=== PATIENT | female | born 1955 | race Caucasian/White ===

== ENCOUNTER 2017-07-21 15:14 | Inpatient (IN) | payer BC ==
[~2017-07-21] VITALS: Ht 157.5 cm; Wt 43.1 kg
[2017-07-21] MEDS ORDERED: ASPI-482 PO (16:02)
[2017-07-21] MEDS ORDERED: IV 1/2 NORMAL SALINE 1,000 ML IV SCH (16:27)
[2017-07-21] MEDS ORDERED: ACETAMINOPHEN 325 MG TABLET. PO PRN (16:30)
[2017-07-21] MEDS ORDERED: ONDANSETRON PF 4 MG/2 ML VIAL. IV PRN (16:30)
[2017-07-21] MEDS ORDERED: IOHEXOL 240 MG/ML 50ML VIAL. PO ONE (16:45)
[2017-07-21] MEDS ORDERED: CONTRAST GIVEN MC PRN (17:00)
[2017-07-21 17:04] LABS: BASO # 0.1 x10^3/uL (0.0-0.2); BASO % 1 % (0-3); EOS % 1 % (0-3); HEMOGLOBIN 12.8 g/dL (12.0-15.5); LYMPH # 2.9 x10^3/uL (1.0-4.8); LYMPH % 19 % (24-48); MEAN CORPUSCULAR HEMOGLOBIN 26 pg (25-35); MEAN CORPUSCULAR HGB CONC 33 g/dL (31-37); MEAN CORPUSCULAR VOLUME 81 fL (79-100); MONO % 7 % (0-9); NEUT % 73 % (31-73); PLATELET COUNT 537 x10^3/uL (140-400); RED BLOOD COUNT 4.85 x10^6/uL (3.50-5.40); RED CELL DISTRIBUTION WIDTH 14.4 % (11.5-14.5); WHITE BLOOD COUNT 15.5 x10^3/uL (4.0-11.0)
[2017-07-21 17:19] LABS: ALBUMIN 3.1 g/dL (3.4-5.0); ALBUMIN/GLOBULIN RATIO 0.7 (1.0-1.7); CALCIUM 9.9 mg/dL (8.5-10.1); CREATININE 0.6 mg/dL (0.6-1.0); POTASSIUM 3.1 mmol/L (3.5-5.1); TOTAL BILIRUBIN 0.5 mg/dL (0.2-1.0); TOTAL PROTEIN 7.6 g/dL (6.4-8.2)
--- NOTE | 2017-07-21 17:21 | PDOC2 ---
GI CONSULT Reason For Consult: Vomiting, weight loss HPI: HPI: 62 y/o female directly admitted by Dr. Goodwin. Has been ill x 1 year, worse x 7- 8 months. Tells me she "spits up" clear phlegm and food (not always, but sometimes 15 min after eating). Feels like food must "get caught somewhere" so keeps to mostly soft/bland foods. Denies dysphagia, retching, and vomiting. Denies abd pain. Denies diarrhea and constipation although bowel movements are irregular due to decreased PO intake. Has lost weight; she prefers not to tell me how much in front of two family members but RN reports ~80 pounds. No hematemesis, melena, hematochezia. H/o heartburn before, no longer bothersome. No previous EGD or colonoscopy. No h/o liver, gallbladder, or pancreas problems. Has had some occasional lower back discomfort, has been taking ASA. Labs: WBC 15.5, plt 547. CMP, US, amylase, lipase pending. CT A/P ordered. PMH: PMH: GERD FH: Family History: Cancer (mother had colon cancer) Social History: Smoke: <1 pack per day ALCOHOL: none Drugs: None ROS: GEN: Denies fevers, chills, sweats HEENT: Denies blurred vision, sore throat CV: Denies chest pain RESP: Denies shortness of air, cough GI: Per HPI : Denies hematuria, dysuria ENDO: +weight loss NEURO: Denies confusion, dizziness MSK: Denies weakness, joint pain/swelling SKIN: Denies jaundice, pruritus Vitals: Vitals: Please see EMR. Labs: Labs: Laboratory Tests Test 07/21/17 16:55 White Blood Count 15.5 x10^3/uL (4.0-11.0) Red Blood Count 4.85 x10^6/uL (3.50-5.40) Hemoglobin 12.8 g/dL (12.0-15.5) Hematocrit 39.0 % (36.0-47.0) Mean Corpuscular Volume 81 fL (79-100) Mean Corpuscular Hemoglobin 26 pg (25-35) Mean Corpuscular Hemoglobin Concent 33 g/dL (31-37) Red Cell Distribution Width 14.4 % (11.5-14.5) Platelet Count 537 x10^3/uL (140-400) Neutrophils (%) (Auto) 73 % (31-73) Lymphocytes (%) (Auto) 19 % (24-48) Monocytes (%) (Auto) 7 % (0-9) Eosinophils (%) (Auto) 1 % (0-3) Basophils (%) (Auto) 1 % (0-3) Neutrophils # (Auto) 11.2 x10^3uL (1.8-7.7) Lymphocytes # (Auto) 2.9 x10^3/uL (1.0-4.8) Monocytes # (Auto) 1.1 x10^3/uL (0.0-1.1) Eosinophils # (Auto) 0.2 x10^3/uL (0.0-0.7) Basophils # (Auto) 0.1 x10^3/uL (0.0-0.2) Allergies: Coded Allergies: Penicillins (Verified Allergy, Unknown, 07/21/17) Sulfa (Sulfonamide Antibiotics) (Verified Allergy, Unknown, 07/21/17) Medications: Please see EMR. PE: GEN: NAD, thin HEENT: Atraumatic, PERRL LUNGS: clear bilaterally anteriorly HEART: RRR ABD: NABS, S/ND/NT EXTREMITY: No edema SKIN: No rashes, no jaundice NEURO/PSYCH: A & O 3 A/P: A/P: Weight loss "Vomiting" -"spits up" phlegm and food H/o GERD -no longer bothersome so untreated, no previous EGD CRC screen, FH colon cancer -no previous colonoscopy -- Await additional labs and CT. Other per Dr. Pineda ---> ?[facility] SUGGS Jul 21, 2017 17:21
[2017-07-21 18:31] VITALS: BP 110/78
[2017-07-21] MEDS: ACETAMINOPHEN 650 MG/20.3 ML SOLUTION. PO PRN (18:53)
[2017-07-21 19:00] VITALS: BP 100/55
[2017-07-21] MEDS ORDERED: PNEUMOCOCCAL VAX SCREEN BY RX. MC ONE (19:15)
[2017-07-21] MEDS ORDERED: PNEUMOC CONJ VACC 23-VALENT 0.5 ML VIAL. VAX IM ONE (19:30)
--- NOTE | 2017-07-21 21:41 | PDOC ---
GENERAL General: see dictated H&P. Problems: VITAL SIGNS Vital Signs: Vital Signs Date Time Temp Pulse Resp B/P (MAP) Pulse Ox O2 Delivery O2 Flow Rate FiO2 07/21/17 19:24 Room Air 07/21/17 19:00 97.7 85 17 100/55 (70) 96 97.7 I & O I & O Intake and Output 07/22/17 07:00 Intake Total 450 ml Balance 450 ml Intake Oral 450 ml # Voids 1 ALLERGIES Allergies: Allergies Coded Allergies Type Severity Reaction Last Updated Verified Penicillins Allergy Unknown 07/21/17 Yes Sulfa (Sulfonamide Antibiotics) Allergy Unknown 07/21/17 Yes MEDS Medications: Current Medications Medications (Trade) Dose Ordered Sig/Riky Start Time Stop Time Status Last Admin Dose Admin Acetaminophen (Tylenol) 650 mg PRN Q6HRS PRN 07/21/17 18:45 07/21/17 18:53 650 MG Info (Do NOT chart on this entry -- for MONITORING) 1 each PRN DAILY PRN 07/21/17 17:00 07/23/17 16:59 Iohexol (Omnipaque 240 Mg/ml) 30 ml 1X ONCE 07/21/17 16:45 07/21/17 16:46 DC Ondansetron HCl (Zofran) 4 mg PRN Q6HRS PRN 07/21/17 16:30 Pneumococcal Polyvalent Vaccine (Do NOT chart on this placeholder) 1 each 1X ONCE 07/21/17 19:15 07/21/17 19:16 UNV Pneumococcal Polyvalent Vaccine (Pneumovax 23) 0.5 ml ONCE ONCE 07/21/17 19:30 07/21/17 19:31 DC 07/21/17 20:05 0.5 ML Sodium Chloride 1,000 ml @ 75 mls/hr [id number] 07/21/17 16:27 07/21/17 17:45 75 MLS/HR LAB Lab: Laboratory Tests Test 07/21/17 16:55 White Blood Count 15.5 x10^3/uL (4.0-11.0) Red Blood Count 4.85 x10^6/uL (3.50-5.40) Hemoglobin 12.8 g/dL (12.0-15.5) Hematocrit 39.0 % (36.0-47.0) Mean Corpuscular Volume 81 fL (79-100) Mean Corpuscular Hemoglobin 26 pg (25-35) Mean Corpuscular Hemoglobin Concent 33 g/dL (31-37) Red Cell Distribution Width 14.4 % (11.5-14.5) Platelet Count 537 x10^3/uL (140-400) Neutrophils (%) (Auto) 73 % (31-73) Lymphocytes (%) (Auto) 19 % (24-48) Monocytes (%) (Auto) 7 % (0-9) Eosinophils (%) (Auto) 1 % (0-3) Basophils (%) (Auto) 1 % (0-3) Neutrophils # (Auto) 11.2 x10^3uL (1.8-7.7) Lymphocytes # (Auto) 2.9 x10^3/uL (1.0-4.8) Monocytes # (Auto) 1.1 x10^3/uL (0.0-1.1) Eosinophils # (Auto) 0.2 x10^3/uL (0.0-0.7) Basophils # (Auto) 0.1 x10^3/uL (0.0-0.2) Sodium Level 135 mmol/L (136-145) Potassium Level 3.1 mmol/L (3.5-5.1) Chloride Level 96 mmol/L (98-107) Carbon Dioxide Level 29 mmol/L (21-32) Anion Gap 10 (6-14) Blood Urea Nitrogen 15 mg/dL (7-20) Creatinine 0.6 mg/dL (0.6-1.0) Estimated GFR (Cockcroft-Gault) 102.0 BUN/Creatinine Ratio 25 (6-20) Glucose Level 120 mg/dL (70-99) Calcium Level 9.9 mg/dL (8.5-10.1) Total Bilirubin 0.5 mg/dL (0.2-1.0) Aspartate Amino Transf (AST/SGOT) 11 U/L (15-37) Alanine Aminotransferase (ALT/SGPT) 12 U/L (14-59) Alkaline Phosphatase 121 U/L (46-116) Total Protein 7.6 g/dL (6.4-8.2) Albumin 3.1 g/dL (3.4-5.0) Albumin/Globulin Ratio 0.7 (1.0-1.7) Amylase Level 39 U/L (25-115) Lipase 147 U/L (73-393) ALIZA SEPULVEDA MD Jul 21, 2017 21:41
--- NOTE | 2017-07-21 22:10 | HP ---
ADMIT DATE: 07/21/2017 CHIEF COMPLAINT AND HISTORY OF PRESENT ILLNESS: This 62-year-old female was met by us in the office on the day of admission. She presented with the story of 80 pounds of weight loss over the last 6 months where she had been around 150 or so pounds was down to 80 or 74 in the office. Over that time, she had lots of GI complaints predominantly ____ for nausea and vomiting, inability to keep anything down. She appeared cachectic and ill and as was as dehydrated and was admitted for hydration as well as workup of the massive weight loss over the short period of time. PAST MEDICAL HISTORY: Unremarkable. MEDICATIONS: Meds were on the aspirin only. ALLERGIES: Include PENICILLIN AND SULFA. SOCIAL HISTORY: She is a smoker having quit on 07/10/2017, does not abuse alcohol or drugs. FAMILY HISTORY: Noncontributory. REVIEW OF SYSTEMS: As mentioned above. PHYSICAL EXAMINATION: GENERAL: She is a well-developed, well-nourished female who appears ill, dehydrated and cachectic. VITAL SIGNS: Stable. She is afebrile. HEAD, EYES, EARS, NOSE AND THROAT: Unremarkable. NECK: Supple without bruit, thyromegaly. CHEST: Clear to auscultation and percussion. HEART: Regular rate and rhythm without S3, S4 or murmur. ABDOMEN: Soft, nontender, without hepatosplenomegaly or mass. EXTREMITIES: Without cyanosis, clubbing or edema. NEUROLOGIC: She is intact. IMPRESSION: Nausea, vomiting, dehydration, and massive weight loss as described above. PLAN: The patient has been admitted. She will be hydrated. Potassium is low on admission, this will be replaced. GI has been consulted. CT scan of the abdomen and pelvis has been ordered and the patient will be monitored, managed and treated appropriately. ALIZA SEPULVEDA MD DR: PADMINI/cr JOB#: [id number] / [id number]
[2017-07-21 23:08] VITALS: BP 113/65
[2017-07-22 03:00] VITALS: BP 120/63
[2017-07-22] MEDS: POTASSIUM CHLORIDE 40 MEQ in IV 1/2 NORMAL SALINE 1,000 ML IV SCH ×2 (04:06→19:19)
[2017-07-22 06:22] LABS: CALCIUM 9.5 mg/dL (8.5-10.1); CREATININE 0.4 mg/dL (0.6-1.0); GFR 162.8; POTASSIUM 3.2 mmol/L (3.5-5.1)
--- NOTE | 2017-07-22 06:26 | ACF ---
Admission Forms Criteria HYPONATREMIA; HYPERNATREMIA; HYPOKALEMIA; HYPERKALEMIA; HYPOCALCEMIA; HYPERCALCEMIA Clinical Indications for Inpatient Care (Place 'X' for any and all applicable criteria): Ongoing inpatient care may be indicated for ANY ONE of the following [G](1)(2)(3 )(5): [X]I. Hyponatremia with ANY ONE of the following: [ ]a) Sodium less than 130 mEq/L (mmol/L) (new) (6)(22) [X]b) Sodium less than 135 mEq/L (mmol/L) with ANY ONE of the following: [X]i) Severe medical etiology requiring inpatient management (eg, heart failure, hypovolemia) [ ]ii) Altered mental status [ ]iii) Seizures [ ]II. Hypernatremia with ANY ONE of the following: [ ]a) Sodium greater than 155 mEq/L (mmol/L) [ ]b) Sodium greater than 150 mEq/L (mmol/L) with ANY ONE of the following: [ ] i) Altered mental status [ ]ii) Seizures [ ]iii) Severe medical etiology (eg, hypovolemia, diabetes insipidus) [ ]iv) Severe weakness [ ]v) Severe medical etiology (eg, hemolysis, infection, drug overdose) [ ]III. Hypokalemia with ANY ONE of the following: [ ]a) Potassium less than 2.5 mEq/L (mmol/L) despite outpatient and emergency treatment [ ]b) Potassium less than 3.0 mEq/L (mmol/L) with ANY ONE of the following: [ ]i) Weakness [ ]ii) Cardiac abnormality (eg, arrhythmia, conduction disturbance) [ ]iii) Cardiac ischemia [ ]iv) Ileus [ ]v) Ongoing medical cause requiring inpatient management. ( e.g., acute renal wasting, SIADH) [ ]vi) Other severe symptoms [ ] IV. Hyperkalemia with ANY ONE of the following: [ ]a) Potassium greater than 6.5 mEq/L (mmol/L) [ ]b) Potassium greater than 5 mEq/L (mmol/L) with ANY ONE of the following: [ ]i) Severe ECG findings [H] [ ]ii) Acute worsening of renal failure (creatinine greater than 2.5 mg/dL (221 micromoles/L) or significant elevation for age and size) [ ] V. Hypocalcemia with ANY ONE of the following: [ ]a) Calcium less than 7 mg/dL (1.75 mmol/L) despite outpatient and emergency treatment(19) [ ]b) Calcium less than 8 mg/dL (2 mmol/L) with significant symptoms or findings; examples include: [ ]i) Cardiac abnormality (eg, arrhythmia or conduction disturbance) [ ]ii) Altered mental status [ ]iii) Seizures [ ]iv) Breathing difficulty [ ]v) Muscle spasms [ ]. Hypercalcemia with ANY ONE of the following: [ ]a) Calcium greater than 14 mg/dL (3.5 mmol/L) [ ]b) Calcium greater than 12 mg/dL (3 mmol/L) with ANY ONE of the following: [ ]i) Significant dehydration or hypovolemia as indicated by ANY ONE of the following(2): [ ]1. Clinically significant dehydration as indicated by ANY ONE of the following: [ ]A. Acute loss of weight from baseline (5% of body weight in adults, 9% in pediatric patients) [ ]B. Hemodynamic instability [ ]C. Acute renal failure [ ]D. Serum sodium greater than 150 mEq/L (mmol/L) [ ]2) Dehydration that is persistent indicated by ALL of the following: [ ]A. Oral rehydration therapy not tolerated or insufficient to adequately correct dehydration [ ]B. Appropriate intravenous treatment (eg, fluids ) does not readily correct dehydration ie, after 12 to 24 hours of treatment) [ ]ii) Significant symptoms or findings; examples include: [ ]1) Altered mental status [ ]2) Cardiac abnormality (eg, arrhythmia, conduction disturbance) [ ]3) Cardiac abnormality (eg, arrhythmia, conduction disturbance) The original [email or web address] content created by [email or web address] has been revised. The portions of the content which have been revised are identified through the use of italic text or in bold, and [facility] has neither reviewed nor approved the modified material. All other unmodified content is copyright [facility] Please see references footnoted in the original [facility] 1006.tv edition 2016 Admission Criteria Met?: Yes DAVID BRYANT Jul 22, 2017 06:26
[2017-07-22 07:00] VITALS: BP 108/65
[2017-07-22] MEDS ORDERED: IOHEXOL 240 MG/ML 50ML VIAL. ONE (08:45)
[2017-07-22 10:48] LABS: BILIRUBIN,URINE MODERATE (NEG); GLUCOSE,URINE NEGATIVE (NEG); NITRITE,URINE NEGATIVE (NEG); PH,URINE 6.5; PROTEIN,URINE 30 mg/dL (NEG-TRACE)
[2017-07-22 11:04] LABS: BACTERIA,URINE FEW /HPF (0-FEW); RBC,URINE OCC /HPF (0-2); SQUAMOUS EPITHELIAL CELL,UR FEW /LPF
[2017-07-22 11:05] VITALS: BP 110/67
--- NOTE | 2017-07-22 11:15 | RAD ---
Indication vomiting. 80 pound weight loss in 6 months. Axial images through the abdomen and pelvis were obtained. Study is somewhat limited. Oral contrast was administered but IV contrast was not. No prior imaging of the abdomen or pelvis is available. The lung bases are clear. No hepatic or splenic abnormality is seen. The gallbladder appears grossly normal. There is suggested thickening involving the distal esophagus and fundus of the stomach. Inflammation or neoplastic disease is not excluded. Endoscopy should be considered. No adrenal or significant renal anomaly is seen. There are minute left renal calculi. No definite pancreatic abnormality is seen. In the pelvis no focal mass or inflammatory process is seen. IMPRESSION: There is suggested thickening involving the visualized distal esophagus and fundus of the stomach. Inflammation or neoplastic disease are not excluded. Endoscopy should be considered. Minute left renal calculi
--- NOTE | 2017-07-22 11:38 | PDOC ---
G I PROGRESS NOTE Subjective Now admits to dysphagia. Physical Exam Cachectic. Lungs clear. RRR Abdomen soft, not tender nor distended. Review of Relevant I have reviewed the following items josué (where applicable) has been applied. Labs Laboratory Tests Test 07/21/17 16:55 07/22/17 05:20 07/22/17 08:52 White Blood Count 15.5 x10^3/uL (4.0-11.0) Red Blood Count 4.85 x10^6/uL (3.50-5.40) Hemoglobin 12.8 g/dL (12.0-15.5) Hematocrit 39.0 % (36.0-47.0) Mean Corpuscular Volume 81 fL (79-100) Mean Corpuscular Hemoglobin 26 pg (25-35) Mean Corpuscular Hemoglobin Concent 33 g/dL (31-37) Red Cell Distribution Width 14.4 % (11.5-14.5) Platelet Count 537 x10^3/uL (140-400) Neutrophils (%) (Auto) 73 % (31-73) Lymphocytes (%) (Auto) 19 % (24-48) Monocytes (%) (Auto) 7 % (0-9) Eosinophils (%) (Auto) 1 % (0-3) Basophils (%) (Auto) 1 % (0-3) Neutrophils # (Auto) 11.2 x10^3uL (1.8-7.7) Lymphocytes # (Auto) 2.9 x10^3/uL (1.0-4.8) Monocytes # (Auto) 1.1 x10^3/uL (0.0-1.1) Eosinophils # (Auto) 0.2 x10^3/uL (0.0-0.7) Basophils # (Auto) 0.1 x10^3/uL (0.0-0.2) Sodium Level 135 mmol/L (136-145) 134 mmol/L (136-145) Potassium Level 3.1 mmol/L (3.5-5.1) 3.2 mmol/L (3.5-5.1) Chloride Level 96 mmol/L (98-107) 97 mmol/L (98-107) Carbon Dioxide Level 29 mmol/L (21-32) 28 mmol/L (21-32) Anion Gap 10 (6-14) 9 (6-14) Blood Urea Nitrogen 15 mg/dL (7-20) 12 mg/dL (7-20) Creatinine 0.6 mg/dL (0.6-1.0) 0.4 mg/dL (0.6-1.0) Estimated GFR (Cockcroft-Gault) 102.0 162.8 BUN/Creatinine Ratio 25 (6-20) Glucose Level 120 mg/dL (70-99) 94 mg/dL (70-99) Calcium Level 9.9 mg/dL (8.5-10.1) 9.5 mg/dL (8.5-10.1) Total Bilirubin 0.5 mg/dL (0.2-1.0) Aspartate Amino Transf (AST/SGOT) 11 U/L (15-37) Alanine Aminotransferase (ALT/SGPT) 12 U/L (14-59) Alkaline Phosphatase 121 U/L (46-116) Total Protein 7.6 g/dL (6.4-8.2) Albumin 3.1 g/dL (3.4-5.0) Albumin/Globulin Ratio 0.7 (1.0-1.7) Amylase Level 39 U/L (25-115) Lipase 147 U/L (73-393) Thyroid Stimulating Hormone (TSH) < 0.007 uIU/mL (0.358-3.74) Urine Collection Type Unknown Urine Color Ade Urine Clarity Clear Urine pH 6.5 Urine Specific [place] >=1.030 Urine Protein 30 mg/dL (NEG-TRACE) Urine Glucose (UA) Negative mg/dL (NEG) Urine Ketones (Stick) 15 mg/dL (NEG) Urine Blood Negative (NEG) Urine Nitrite Negative (NEG) Urine Bilirubin Moderate (NEG) Urine Urobilinogen Dipstick 1.0 mg/dL (0.2 mg/dL) Urine Leukocyte Esterase Small (NEG) Urine RBC Occ /HPF (0-2) Urine WBC 5-10 /HPF (0-4) Urine Squamous Epithelial Cells Few /LPF Urine Bacteria Few /HPF (0-FEW) Urine Mucus Mod /LPF Laboratory Tests Test 07/21/17 16:55 07/22/17 05:20 07/22/17 08:52 White Blood Count 15.5 x10^3/uL (4.0-11.0) Red Blood Count 4.85 x10^6/uL (3.50-5.40) Hemoglobin 12.8 g/dL (12.0-15.5) Hematocrit 39.0 % (36.0-47.0) Mean Corpuscular Volume 81 fL (79-100) Mean Corpuscular Hemoglobin 26 pg (25-35) Mean Corpuscular Hemoglobin Concent 33 g/dL (31-37) Red Cell Distribution Width 14.4 % (11.5-14.5) Platelet Count 537 x10^3/uL (140-400) Neutrophils (%) (Auto) 73 % (31-73) Lymphocytes (%) (Auto) 19 % (24-48) Monocytes (%) (Auto) 7 % (0-9) Eosinophils (%) (Auto) 1 % (0-3) Basophils (%) (Auto) 1 % (0-3) Neutrophils # (Auto) 11.2 x10^3uL (1.8-7.7) Lymphocytes # (Auto) 2.9 x10^3/uL (1.0-4.8) Monocytes # (Auto) 1.1 x10^3/uL (0.0-1.1) Eosinophils # (Auto) 0.2 x10^3/uL (0.0-0.7) Basophils # (Auto) 0.1 x10^3/uL (0.0-0.2) Sodium Level 135 mmol/L (136-145) 134 mmol/L (136-145) Potassium Level 3.1 mmol/L (3.5-5.1) 3.2 mmol/L (3.5-5.1) Chloride Level 96 mmol/L (98-107) 97 mmol/L (98-107) Carbon Dioxide Level 29 mmol/L (21-32) 28 mmol/L (21-32) Anion Gap 10 (6-14) 9 (6-14) Blood Urea Nitrogen 15 mg/dL (7-20) 12 mg/dL (7-20) Creatinine 0.6 mg/dL (0.6-1.0) 0.4 mg/dL (0.6-1.0) Estimated GFR (Cockcroft-Gault) 102.0 162.8 BUN/Creatinine Ratio 25 (6-20) Glucose Level 120 mg/dL (70-99) 94 mg/dL (70-99) Calcium Level 9.9 mg/dL (8.5-10.1) 9.5 mg/dL (8.5-10.1) Total Bilirubin 0.5 mg/dL (0.2-1.0) Aspartate Amino Transf (AST/SGOT) 11 U/L (15-37) Alanine Aminotransferase (ALT/SGPT) 12 U/L (14-59) Alkaline Phosphatase 121 U/L (46-116) Total Protein 7.6 g/dL (6.4-8.2) Albumin 3.1 g/dL (3.4-5.0) Albumin/Globulin Ratio 0.7 (1.0-1.7) Amylase Level 39 U/L (25-115) Lipase 147 U/L (73-393) Thyroid Stimulating Hormone (TSH) < 0.007 uIU/mL (0.358-3.74) Urine Collection Type Unknown Urine Color Ade Urine Clarity Clear Urine pH 6.5 Urine Specific [place] >=1.030 Urine Protein 30 mg/dL (NEG-TRACE) Urine Glucose (UA) Negative mg/dL (NEG) Urine Ketones (Stick) 15 mg/dL (NEG) Urine Blood Negative (NEG) Urine Nitrite Negative (NEG) Urine Bilirubin Moderate (NEG) Urine Urobilinogen Dipstick 1.0 mg/dL (0.2 mg/dL) Urine Leukocyte Esterase Small (NEG) Urine RBC Occ /HPF (0-2) Urine WBC 5-10 /HPF (0-4) Urine Squamous Epithelial Cells Few /LPF Urine Bacteria Few /HPF (0-FEW) Urine Mucus Mod /LPF Medications Current Medications Sodium Chloride 1,000 ml @ 75 mls/hr [id number] IV Last administered on t 17:45; Start 07/21/17 at 16:27; Stop 07/21/17 at 21:54; Status DC Ondansetron HCl (Zofran) 4 mg PRN Q6HRS PRN IV NAUSEA/VOMITING; Start 07/21/17 at 16:30 Acetaminophen (Tylenol) 650 mg PRN Q6HRS PRN PO PAIN; Start 07/21/17 at 16:30; Stop 07/21/17 at 18:41; Status DC Iohexol (Omnipaque 240 Mg/ml) 30 ml 1X ONCE PO Last administered on 07/22/17 10:28; Start 07/21/17 at 16:45; Stop 07/21/17 at 16:46; Status DC Info (Do NOT chart on this entry -- for MONITORING) 1 each PRN DAILY PRN MC SEE COMMENTS; Start 07/21/17 at 17:00; Stop 07/23/17 at 16:59 Acetaminophen (Tylenol) 650 mg PRN Q6HRS PRN PO MILD PAIN / TEMP Last administered on 07/21/17 18:53; Start 07/21/17 at 18:45 Pneumococcal Polyvalent Vaccine (Do NOT chart on this placeholder) 1 each 1X ONCE MC ; Start 07/21/17 at 19:15; Stop 07/21/17 at 19:16; Status UNV Pneumococcal Polyvalent Vaccine (Pneumovax 23) 0.5 ml ONCE ONCE VAX IM Last administered on 07/21/17 20:05; Start 07/21/17 at 19:30; Stop 07/21/17 at 19:31 ; Status DC Potassium Chloride 40 meq/ Sodium Chloride 1,020 ml @ 75 mls/hr [id number] IV Last administered on 07/22/17 04:06; Start 07/21/17 at 23:00 Iohexol (Omnipaque 240 Mg/ml) 50 ml STK-MED ONCE .ROUTE ; Start 07/22/17 at 08: 45; Stop 07/22/17 at 08:46; Status DC Active Scripts Active Reported Aspir 81 (Aspirin) 81 Mg Tablet.dr 81 Mg PO DAILY Vitals/I & O Vital Sign - Last 24 Hours 07/21/17 07/21/17 07/21/17 07/21/17 17:00 18:31 19:00 19:24 Temp 97.7 97.7 97.7 97.7 Pulse 102 85 Resp 17 B/P (MAP) 110/78 (89) 100/55 (70) Pulse Ox 97 96 O2 Delivery Room Air Room Air Room Air 07/21/17 07/22/17 07/22/17 07/22/17 23:08 03:00 07:00 11:05 Temp 97.5 97.5 97.5 97.7 97.5 97.5 97.5 97.7 Pulse 75 68 77 80 Resp 19 18 18 18 B/P (MAP) 113/65 (81) 120/63 (82) 108/65 (79) 110/67 (81) Pulse Ox 97 98 99 100 O2 Delivery Room Air Room Air Room Air Room Air Images CT done, report pending. As I view the study, seems distal esophagus/proximal stomach mass. Assessment Malignancy highly suspect. Plan of Care Note Await CT report. If agrees with my interpretation, EGD tomorrow. VICTORINO OVERTON MD Jul 22, 2017 11:38
--- NOTE | 2017-07-22 12:09 | PDOC ---
PROGRESS NOTES Subjective Subjective Pt awake and pleasant this am. States she continues to gag on her saliva and has to spit it up. Pt states she is somewhat hungry, however is NPO awaiting results of CT and further testing. Pt denies diarrhea or pain. Objective Objective Pt awake and alert. NAD. VSS. Afebrile. Lungs CTA bilat. Resp even and unlabored. Pt on RA, not requiring supplemental O2. Heart with RRR. No murmurs. Abdomen soft, nondistended, and nontender. Vital Signs Date Time Temp Pulse Resp B/P (MAP) Pulse Ox O2 Delivery O2 Flow Rate FiO2 07/22/17 11:05 97.7 80 18 110/67 (81) 100 Room Air 97.7 Plan Plan of Care 1) Dysphagia with 80 pound weight loss in last 6 months -GI consulting -CT this am: "There is suggested thickening involving the visualized distalesophagus and fundus of the stomach. Inflammation or neoplastic disease arenot excluded. Endoscopy should be considered." -EGD scheduled for tomorrow am. 2) Dehydration with Hypokalemia and Hyponatremia -K 3.1 on 07/21, 40mEq of K added to IVS of NS. K 3.2 this am. -Na 134 this am -Repeat BMP in am. Comment Review of Relevant I have reviewed the following items josué (where applicable) has been applied. Labs Laboratory Tests Test 07/21/17 16:55 07/22/17 05:20 07/22/17 08:52 White Blood Count 15.5 x10^3/uL (4.0-11.0) Red Blood Count 4.85 x10^6/uL (3.50-5.40) Hemoglobin 12.8 g/dL (12.0-15.5) Hematocrit 39.0 % (36.0-47.0) Mean Corpuscular Volume 81 fL (79-100) Mean Corpuscular Hemoglobin 26 pg (25-35) Mean Corpuscular Hemoglobin Concent 33 g/dL (31-37) Red Cell Distribution Width 14.4 % (11.5-14.5) Platelet Count 537 x10^3/uL (140-400) Neutrophils (%) (Auto) 73 % (31-73) Lymphocytes (%) (Auto) 19 % (24-48) Monocytes (%) (Auto) 7 % (0-9) Eosinophils (%) (Auto) 1 % (0-3) Basophils (%) (Auto) 1 % (0-3) Neutrophils # (Auto) 11.2 x10^3uL (1.8-7.7) Lymphocytes # (Auto) 2.9 x10^3/uL (1.0-4.8) Monocytes # (Auto) 1.1 x10^3/uL (0.0-1.1) Eosinophils # (Auto) 0.2 x10^3/uL (0.0-0.7) Basophils # (Auto) 0.1 x10^3/uL (0.0-0.2) Sodium Level 135 mmol/L (136-145) 134 mmol/L (136-145) Potassium Level 3.1 mmol/L (3.5-5.1) 3.2 mmol/L (3.5-5.1) Chloride Level 96 mmol/L (98-107) 97 mmol/L (98-107) Carbon Dioxide Level 29 mmol/L (21-32) 28 mmol/L (21-32) Anion Gap 10 (6-14) 9 (6-14) Blood Urea Nitrogen 15 mg/dL (7-20) 12 mg/dL (7-20) Creatinine 0.6 mg/dL (0.6-1.0) 0.4 mg/dL (0.6-1.0) Estimated GFR (Cockcroft-Gault) 102.0 162.8 BUN/Creatinine Ratio 25 (6-20) Glucose Level 120 mg/dL (70-99) 94 mg/dL (70-99) Calcium Level 9.9 mg/dL (8.5-10.1) 9.5 mg/dL (8.5-10.1) Total Bilirubin 0.5 mg/dL (0.2-1.0) Aspartate Amino Transf (AST/SGOT) 11 U/L (15-37) Alanine Aminotransferase (ALT/SGPT) 12 U/L (14-59) Alkaline Phosphatase 121 U/L (46-116) Total Protein 7.6 g/dL (6.4-8.2) Albumin 3.1 g/dL (3.4-5.0) Albumin/Globulin Ratio 0.7 (1.0-1.7) Amylase Level 39 U/L (25-115) Lipase 147 U/L (73-393) Thyroid Stimulating Hormone (TSH) < 0.007 uIU/mL (0.358-3.74) Urine Collection Type Unknown Urine Color Ade Urine Clarity Clear Urine pH 6.5 Urine Specific [place] >=1.030 Urine Protein 30 mg/dL (NEG-TRACE) Urine Glucose (UA) Negative mg/dL (NEG) Urine Ketones (Stick) 15 mg/dL (NEG) Urine Blood Negative (NEG) Urine Nitrite Negative (NEG) Urine Bilirubin Moderate (NEG) Urine Urobilinogen Dipstick 1.0 mg/dL (0.2 mg/dL) Urine Leukocyte Esterase Small (NEG) Urine RBC Occ /HPF (0-2) Urine WBC 5-10 /HPF (0-4) Urine Squamous Epithelial Cells Few /LPF Urine Bacteria Few /HPF (0-FEW) Urine Mucus Mod /LPF Laboratory Tests Test 07/21/17 16:55 07/22/17 05:20 07/22/17 08:52 White Blood Count 15.5 x10^3/uL (4.0-11.0) Red Blood Count 4.85 x10^6/uL (3.50-5.40) Hemoglobin 12.8 g/dL (12.0-15.5) Hematocrit 39.0 % (36.0-47.0) Mean Corpuscular Volume 81 fL (79-100) Mean Corpuscular Hemoglobin 26 pg (25-35) Mean Corpuscular Hemoglobin Concent 33 g/dL (31-37) Red Cell Distribution Width 14.4 % (11.5-14.5) Platelet Count 537 x10^3/uL (140-400) Neutrophils (%) (Auto) 73 % (31-73) Lymphocytes (%) (Auto) 19 % (24-48) Monocytes (%) (Auto) 7 % (0-9) Eosinophils (%) (Auto) 1 % (0-3) Basophils (%) (Auto) 1 % (0-3) Neutrophils # (Auto) 11.2 x10^3uL (1.8-7.7) Lymphocytes # (Auto) 2.9 x10^3/uL (1.0-4.8) Monocytes # (Auto) 1.1 x10^3/uL (0.0-1.1) Eosinophils # (Auto) 0.2 x10^3/uL (0.0-0.7) Basophils # (Auto) 0.1 x10^3/uL (0.0-0.2) Sodium Level 135 mmol/L (136-145) 134 mmol/L (136-145) Potassium Level 3.1 mmol/L (3.5-5.1) 3.2 mmol/L (3.5-5.1) Chloride Level 96 mmol/L (98-107) 97 mmol/L (98-107) Carbon Dioxide Level 29 mmol/L (21-32) 28 mmol/L (21-32) Anion Gap 10 (6-14) 9 (6-14) Blood Urea Nitrogen 15 mg/dL (7-20) 12 mg/dL (7-20) Creatinine 0.6 mg/dL (0.6-1.0) 0.4 mg/dL (0.6-1.0) Estimated GFR (Cockcroft-Gault) 102.0 162.8 BUN/Creatinine Ratio 25 (6-20) Glucose Level 120 mg/dL (70-99) 94 mg/dL (70-99) Calcium Level 9.9 mg/dL (8.5-10.1) 9.5 mg/dL (8.5-10.1) Total Bilirubin 0.5 mg/dL (0.2-1.0) Aspartate Amino Transf (AST/SGOT) 11 U/L (15-37) Alanine Aminotransferase (ALT/SGPT) 12 U/L (14-59) Alkaline Phosphatase 121 U/L (46-116) Total Protein 7.6 g/dL (6.4-8.2) Albumin 3.1 g/dL (3.4-5.0) Albumin/Globulin Ratio 0.7 (1.0-1.7) Amylase Level 39 U/L (25-115) Lipase 147 U/L (73-393) Thyroid Stimulating Hormone (TSH) < 0.007 uIU/mL (0.358-3.74) Urine Collection Type Unknown Urine Color Ade Urine Clarity Clear Urine pH 6.5 Urine Specific [place] >=1.030 Urine Protein 30 mg/dL (NEG-TRACE) Urine Glucose (UA) Negative mg/dL (NEG) Urine Ketones (Stick) 15 mg/dL (NEG) Urine Blood Negative (NEG) Urine Nitrite Negative (NEG) Urine Bilirubin Moderate (NEG) Urine Urobilinogen Dipstick 1.0 mg/dL (0.2 mg/dL) Urine Leukocyte Esterase Small (NEG) Urine RBC Occ /HPF (0-2) Urine WBC 5-10 /HPF (0-4) Urine Squamous Epithelial Cells Few /LPF Urine Bacteria Few /HPF (0-FEW) Urine Mucus Mod /LPF Medications Current Medications Sodium Chloride 1,000 ml @ 75 mls/hr [id number] IV Last administered on 17:45; Start 07/21/17 at 16:27; Stop 07/21/17 at 21:54; Status DC Ondansetron HCl (Zofran) 4 mg PRN Q6HRS PRN IV NAUSEA/VOMITING; Start 07/21/17 at 16:30 Acetaminophen (Tylenol) 650 mg PRN Q6HRS PRN PO PAIN; Start 07/21/17 at 16:30; Stop 07/21/17 at 18:41; Status DC Iohexol (Omnipaque 240 Mg/ml) 30 ml 1X ONCE PO Last administered on 07/22/17 10:28; Start 07/21/17 at 16:45; Stop 07/21/17 at 16:46; Status DC Info (Do NOT chart on this entry -- for MONITORING) 1 each PRN DAILY PRN MC SEE COMMENTS; Start 07/21/17 at 17:00; Stop 07/23/17 at 16:59 Acetaminophen (Tylenol) 650 mg PRN Q6HRS PRN PO MILD PAIN / TEMP Last administered on 07/21/17 18:53; Start 07/21/17 at 18:45 Pneumococcal Polyvalent Vaccine (Do NOT chart on this placeholder) 1 each 1X ONCE MC ; Start 07/21/17 at 19:15; Stop 07/21/17 at 19:16; Status UNV Pneumococcal Polyvalent Vaccine (Pneumovax 23) 0.5 ml ONCE ONCE VAX IM Last administered on 07/21/17 20:05; Start 07/21/17 at 19:30; Stop 07/21/17 at 19:31 ; Status DC Potassium Chloride 40 meq/ Sodium Chloride 1,020 ml @ 75 mls/hr [id number] IV Last administered on 07/22/17t 04:06; Start 07/21/17 at 23:00 Iohexol (Omnipaque 240 Mg/ml) 50 ml STK-MED ONCE .ROUTE ; Start 07/22/17 at 08: 45; Stop 07/22/17 at 08:46; Status DC Active Scripts Active Reported Aspir 81 (Aspirin) 81 Mg Tablet.dr 81 Mg PO DAILY Vitals/I & O Vital Sign - Last 24 Hours 07/21/17 07/21/17 07/21/17 07/21/17 17:00 18:31 19:00 19:24 Temp 97.7 97.7 97.7 97.7 Pulse 102 85 Resp 17 17 B/P (MAP) 110/78 (89) 100/55 (70) Pulse Ox 97 96 O2 Delivery Room Air Room Air Room Air 07/21/17 07/22/17 07/22/17 07/22/17 23:08 03:00 07:00 11:05 Temp 97.5 97.5 97.5 97.7 97.5 97.5 97.5 97.7 Pulse 75 68 77 80 Resp 19 18 18 18 B/P (MAP) 113/65 (81) 120/63 (82) 108/65 (79) 110/67 (81) Pulse Ox 97 98 99 100 O2 Delivery Room Air Room Air Room Air Room Air ALIZA SEPULVEDA MD Jul 22, 2017 12:09
[2017-07-22 12:26] LABS: HEMATOCRIT 35.9 % (36.0-47.0); HEMOGLOBIN 11.5 g/dL (12.0-15.5); RED BLOOD COUNT 4.37 x10^6/uL (3.50-5.40); RED CELL DISTRIBUTION WIDTH 14.3 % (11.5-14.5); WHITE BLOOD COUNT 15.2 x10^3/uL (4.0-11.0)
[2017-07-22 15:00] VITALS: BP 97/63
[2017-07-22 19:00] VITALS: BP 101/56
[2017-07-22 23:00] VITALS: BP 102/58
[2017-07-23] VITALS (11 sets, daily range): BP systolic 85–122; BP diastolic 54–74
[2017-07-23] MEDS ORDERED: HYDROmorphone 2 MG/ML VIAL IV PRN (07:00)
[2017-07-23] MEDS ORDERED: PROCHLORPERAZINE 10 MG/2 ML VIAL. IV PRN (07:00)
[2017-07-23] MEDS ORDERED: MORPHINE SULFATE 2 MG/ML DISP.SYRIN. IV PRN (07:00)
[2017-07-23] MEDS ORDERED: fentaNYL PF VIAL 100 MCG/2 ML VIAL IV PRN ×4 (07:00→11:30)
[2017-07-23] MEDS ORDERED: IV RINGERS,LACTATED 1000ML 1,000 ML IV SCH (07:00)
[2017-07-23] MEDS ORDERED: ONDANSETRON PF 4 MG/2 ML VIAL. IV PRN (07:00)
[2017-07-23] MEDS ORDERED: LIDOCAINE 1% 1 ML SYRINGE. ID PRN ×2 (07:00→11:30)
[2017-07-23] MEDS: POTASSIUM CHLORIDE 40 MEQ in IV 1/2 NORMAL SALINE 1,000 ML IV SCH ×2 (09:21→15:48)
[2017-07-23 10:11] LABS: CALCIUM 8.9 mg/dL (8.5-10.1); CREATININE 0.3 mg/dL (0.6-1.0); GFR 226.9; POTASSIUM 4.1 mmol/L (3.5-5.1)
--- NOTE | 2017-07-23 11:23 | PDOC ---
PROGRESS NOTES Subjective Subjective Pt awake and pleasant in conversation. Continues to deny painful symptoms. States she did have two cups of chicken broth last evening and tolerated them well. Pt states she had two loose, but formed, BMs this am. Pt states she has a good appetite and is excited to be able to eat. Pt states she feels better than she has in a very long time. Objective Objective Pt awake and alert. NAD. VSS. Afebrile. Lungs CTA bilat. Resp even and unlabored. Pt on RA, not requiring supplemental O2. Heart with RRR. No murmurs. No pedal edema. Abdomen soft, nondistended, and nontender to palpation. No palpable masses. Vital Signs Date Time Temp Pulse Resp B/P (MAP) Pulse Ox O2 Delivery O2 Flow Rate FiO2 07/23/17 08:00 Room Air 07/23/17 07:00 97.5 72 17 114/69 (84) 98 97.5 Plan Plan of Care 1) Dysphagia with 80 pound weight loss in last 6 months -GI consulting -CT this am: "There is suggested thickening involving the visualized distal esophagus and fundus of the stomach. Inflammation or neoplastic disease are not excluded. Endoscopy should be considered." -EGD scheduled for this am. 2) Dehydration with Hypokalemia and Hyponatremia -K 3.1 on 07/21, 40mEq of K added to IVS of NS. -Na 134 this am, K 4.1 Awaiting results of EGD to help guide continued POC. Comment Review of Relevant I have reviewed the following items josué (where applicable) has been applied. Labs Laboratory Tests Test 07/21/17 16:55 07/22/17 05:20 07/22/17 08:52 07/23/17 08:40 White Blood Count 15.5 x10^3/uL (4.0-11.0) 15.2 x10^3/uL (4.0-11.0) Red Blood Count 4.85 x10^6/uL (3.50-5.40) 4.37 x10^6/uL (3.50-5.40) Hemoglobin 12.8 g/dL (12.0-15.5) 11.5 g/dL (12.0-15.5) Hematocrit 39.0 % (36.0-47.0) 35.9 % (36.0-47.0) Mean Corpuscular Volume 81 fL (79-100) 82 fL (79-100) Mean Corpuscular Hemoglobin 26 pg (25-35) 26 pg (25-35) Mean Corpuscular Hemoglobin Concent 33 g/dL (31-37) 32 g/dL (31-37) Red Cell Distribution Width 14.4 % (11.5-14.5) 14.3 % (11.5-14.5) Platelet Count 537 x10^3/uL (140-400) 444 x10^3/uL (140-400) Neutrophils (%) (Auto) 73 % (31-73) Lymphocytes (%) (Auto) 19 % (24-48) Monocytes (%) (Auto) 7 % (0-9) Eosinophils (%) (Auto) 1 % (0-3) Basophils (%) (Auto) 1 % (0-3) Neutrophils # (Auto) 11.2 x10^3uL (1.8-7.7) Lymphocytes # (Auto) 2.9 x10^3/uL (1.0-4.8) Monocytes # (Auto) 1.1 x10^3/uL (0.0-1.1) Eosinophils # (Auto) 0.2 x10^3/uL (0.0-0.7) Basophils # (Auto) 0.1 x10^3/uL (0.0-0.2) Sodium Level 135 mmol/L (136-145) 134 mmol/L (136-145) 134 mmol/L (136-145) Potassium Level 3.1 mmol/L (3.5-5.1) 3.2 mmol/L (3.5-5.1) 4.1 mmol/L (3.5-5.1) Chloride Level 96 mmol/L (98-107) 97 mmol/L (98-107) 102 mmol/L (98-107) Carbon Dioxide Level 29 mmol/L (21-32) 28 mmol/L (21-32) 27 mmol/L (21-32) Anion Gap 10 (6-14) 9 (6-14) 5 (6-14) Blood Urea Nitrogen 15 mg/dL (7-20) 12 mg/dL (7-20) 7 mg/dL (7-20) Creatinine 0.6 mg/dL (0.6-1.0) 0.4 mg/dL (0.6-1.0) 0.3 mg/dL (0.6-1.0) Estimated GFR (Cockcroft-Gault) 102.0 162.8 226.9 BUN/Creatinine Ratio 25 (6-20) Glucose Level 120 mg/dL (70-99) 94 mg/dL (70-99) 76 mg/dL (70-99) Calcium Level 9.9 mg/dL (8.5-10.1) 9.5 mg/dL (8.5-10.1) 8.9 mg/dL (8.5-10.1) Total Bilirubin 0.5 mg/dL (0.2-1.0) Aspartate Amino Transf (AST/SGOT) 11 U/L (15-37) Alanine Aminotransferase (ALT/SGPT) 12 U/L (14-59) Alkaline Phosphatase 121 U/L (46-116) Total Protein 7.6 g/dL (6.4-8.2) Albumin 3.1 g/dL (3.4-5.0) Albumin/Globulin Ratio 0.7 (1.0-1.7) Amylase Level 39 U/L (25-115) Lipase 147 U/L (73-393) Thyroid Stimulating Hormone (TSH) < 0.007 uIU/mL (0.358-3.74) Urine Collection Type Unknown Urine Color Ade Urine Clarity Clear Urine pH 6.5 Urine Specific [place] >=1.030 Urine Protein 30 mg/dL (NEG-TRACE) Urine Glucose (UA) Negative mg/dL (NEG) Urine Ketones (Stick) 15 mg/dL (NEG) Urine Blood Negative (NEG) Urine Nitrite Negative (NEG) Urine Bilirubin Moderate (NEG) Urine Urobilinogen Dipstick 1.0 mg/dL (0.2 mg/dL) Urine Leukocyte Esterase Small (NEG) Urine RBC Occ /HPF (0-2) Urine WBC 5-10 /HPF (0-4) Urine Squamous Epithelial Cells Few /LPF Urine Bacteria Few /HPF (0-FEW) Urine Mucus Mod /LPF Laboratory Tests Test 07/23/17 08:40 Sodium Level 134 mmol/L (136-145) Potassium Level 4.1 mmol/L (3.5-5.1) Chloride Level 102 mmol/L (98-107) Carbon Dioxide Level 27 mmol/L (21-32) Anion Gap 5 (6-14) Blood Urea Nitrogen 7 mg/dL (7-20) Creatinine 0.3 mg/dL (0.6-1.0) Estimated GFR (Cockcroft-Gault) 226.9 Glucose Level 76 mg/dL (70-99) Calcium Level 8.9 mg/dL (8.5-10.1) Medications Current Medications Sodium Chloride 1,000 ml @ 75 mls/hr [id number] IV Last administered on 17:45; Start 07/21/17 at 16:27; Stop 07/21/17 at 21:54; Status DC Ondansetron HCl (Zofran) 4 mg PRN Q6HRS PRN IV NAUSEA/VOMITING; Start 07/21/17 at 16:30 Acetaminophen (Tylenol) 650 mg PRN Q6HRS PRN PO PAIN; Start 07/21/17 at 16:30; Stop 07/21/17 at 18:41; Status DC Iohexol (Omnipaque 240 Mg/ml) 30 ml 1X ONCE PO Last administered on 07/22/17 10:28; Start 07/21/17 at 16:45; Stop 07/21/17 at 16:46; Status DC Info (Do NOT chart on this entry -- for MONITORING) 1 each PRN DAILY PRN MC SEE COMMENTS; Start 07/21/17 at 17:00; Stop 07/23/17 at 16:59 Acetaminophen (Tylenol) 650 mg PRN Q6HRS PRN PO MILD PAIN / TEMP Last administered on 07/21/17 18:53; Start 07/21/17 at 18:45 Pneumococcal Polyvalent Vaccine (Do NOT chart on this placeholder) 1 each 1X ONCE MC ; Start 07/21/17 at 19:15; Stop 07/21/17 at 19:16; Status UNV Pneumococcal Polyvalent Vaccine (Pneumovax 23) 0.5 ml ONCE ONCE VAX IM Last administered on 07/21/17 20:05; Start 07/21/17 at 19:30; Stop 07/21/17 at 19:31 ; Status DC Potassium Chloride 40 meq/ Sodium Chloride 1,020 ml @ 75 mls/hr [id number] IV Last administered on 07/23/17t 09:21; Start 07/21/17 at 23:00 Iohexol (Omnipaque 240 Mg/ml) 50 ml STK-MED ONCE .ROUTE ; Start 07/22/17 at 08: 45; Stop 07/22/17 at 08:46; Status DC Ondansetron HCl (Zofran) 4 mg PRN Q6HRS PRN IV NAUSEA/VOMITING; Start 07/23/17 at 07:00; Stop 07/23/17 at 18:00 Fentanyl Citrate (Fentanyl 2ml Vial) 25 mcg PRN Q5MIN PRN IV MILD PAIN; Start 07/23/17 at 07:00; Stop 07/23/17 at 18:00 Fentanyl Citrate (Fentanyl 2ml Vial) 50 mcg PRN Q5MIN PRN IV MODERATE PAIN; Start 07/23/17 at 07:00; Stop 07/23/17 at 18:00 Morphine Sulfate 1 mg PRN Q10MIN PRN IV SEVERE PAIN; Start 07/23/17 at 07:00; Stop 07/23/17 at 18:00 Ringer's Solution 1,000 ml @ 30 mls/hr Q24H IV ; Start 07/23/17 at 07:00; Stop 07/23/17 at 18:59 Lidocaine HCl 2 ml PRN 1X PRN ID PRIOR TO IV START; Start 07/23/17 at 07:00; Stop 07/23/17 at 18:00 Hydromorphone HCl (Dilaudid) 0.5 mg PRN Q10MIN PRN IV SEV PAIN, Second choice; Start 07/23/17 at 07:00; Stop 07/23/17 at 18:00 Prochlorperazine Edisylate (Compazine) 5 mg PACU PRN PRN IV NAUSEA, MRX1; Start 07/23/17 at 07:00; Stop 07/23/17 at 18:00 Active Scripts Active Reported Aspir 81 (Aspirin) 81 Mg Tablet.dr 81 Mg PO DAILY Vitals/I & O Vital Sign - Last 24 Hours 07/22/17 07/22/17 07/22/17 07/22/17 15:00 19:00 20:00 23:00 Temp 97.7 97.9 97.7 97.7 97.9 97.7 Pulse 75 72 68 Resp 16 18 18 B/P (MAP) 97/63 (74) 101/56 (71) 102/58 (73) Pulse Ox 98 95 98 O2 Delivery Room Air Room Air Room Air Room Air 07/23/17 07/23/17 07:00 08:00 Temp 97.5 97.5 Pulse 72 Resp 17 B/P (MAP) 114/69 (84) Pulse Ox 98 O2 Delivery Room Air Room Air Nutrition Consultation Dietary Evaluation: Recommendations by RD: Increase Calorie Intake, Protein supplementation Comments: diet adv per gi w/ Ensure supplements ppn if unable to initate a po diet within next 24-48 hr Expected Outcomes/Goals: to meet > 75% est nutr needs Interpretation of weight loss: >20% in 1 year Malnutrition Findings: Food and Nutrition Intake (Sev: <50% est energy req 5days Body Fat Depletion (Non Severe: Mod to Severe Weight Status: Underweight ALIZA SEPULVEDA MD Jul 23, 2017 11:23
[2017-07-23] MEDS: IV RINGERS,LACTATED 1000ML 1,000 ML IV SCH ×2 (11:24→19:24)
[2017-07-23] MEDS ORDERED: MIDAZOLAM HCL/PF 2 MG/2 ML VIAL. IV PRN (11:30)
[2017-07-23] MEDS ORDERED: PROPOFOL 20 ML IV ONE (11:44)
[2017-07-23] MEDS ORDERED: LIDOCAINE 2% PF Vial for OR 5 ML VIAL. ONE (11:44)
--- NOTE | 2017-07-23 12:00 | PDOC4 ---
PROCEDURE Procedure EGD/biopsies Indication: dysphagia, weight loss, abnormal imaging. Meds: per anesthesia. Findings: E--obvious tumor starting at 19cm, extending into cardia. GEJ at 39cm. Biopsies taken. G--tumor in cardia, extending up toward fundus. Biopsies of cardiac portion. D--Normal to second portion. 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 Process seems to extend into cardia /fundus. REC: Await biopsies. Heme/onc consult. Consider surgical opinion, though not likely curable surgically. Thanks. VICTORINO OVERTON MD Jul 23, 2017 12:00
--- NOTE | 2017-07-23 15:30 | PDOC ---
Provider Note Provider Note Med Onc consult: Esophageal malignancy - await Bx, Plan EUS, and CT chest and Rad Onc consult see dictation [id number] FIFI CUEVAS MD Jul 23, 2017 15:30
--- NOTE | 2017-07-23 23:52 | CONS ---
DATE OF CONSULTATION: 07/23/2017 MEDICAL ONCOLOGY CONSULTATION REPORT CONSULTATION REQUESTING BY: Jason Goodwin M.D. REASON FOR CONSULTATION: Distal esophageal mass. HISTORY OF PRESENT ILLNESS: The patient is a 62-year-old female who reports being ill for almost a year. She denies dysphagia, but she mentions that her food gets caught somewhere and then she tends to spit up phlegm and sometimes about 15 minutes after eating. She denies abdominal pain. No nausea. No diarrhea or constipation. She reports weight loss, but she does not prefer to say how much. No hematemesis, melena or hematochezia. She underwent further evaluation with a CT scan of the abdomen and pelvis on 07/22/2017, which reveals thickening involving the distal esophagus and fundus of the stomach. There is also evidence of left renal calculi. Review of the other records indicates that the patient has lost over 80 pounds of weight over 6 months, according to Dr. Goodwin's note. She was evaluated by Gastroenterology and she underwent an EGD by Dr. Gonzalo Pineda on 07/23/2017, which revealed tumor starting at 19 cm, extending into the cardia. Biopsies were obtained. Esophageal malignancy was suspected and hence, I was consulted for further evaluation. She denies hematemesis, melena or hematochezia. No hemoptysis or hematuria. PAST MEDICAL HISTORY: Gastroesophageal reflux disease. FAMILY HISTORY: Mother had colon cancer. SOCIAL HISTORY: She has history of smoking less than 1 pack per year and she started smoking during her late teen years. She quit smoking in 06/2017. No alcohol abuse. REVIEW OF SYSTEMS: A 14-point review of systems were performed. Pertinent positives are mentioned in the history of present illness. Rest of the system review is negative. PHYSICAL EXAMINATION: GENERAL APPEARANCE: The patient is a 62-year-old female who is in no acute cardiorespiratory distress. VITAL SIGNS: Blood pressure 106/70, temperature 97 degrees. HEAD: Atraumatic and normocephalic. EYES: No icterus. NECK: Supple. CHEST: Bilaterally symmetrical. No crepitations or rhonchi heard. HEART: S1, S2 normal. ABDOMEN: Soft, nontender. CENTRAL NERVOUS SYSTEM: No focal deficits. LYMPHATICS: No lymphadenopathy. SKIN: No rashes. PSYCHOLOGIC: Mood and affect are appropriate. MUSCULOSKELETAL: No joint effusions. LABORATORY DATA: WBC 15.2, hemoglobin 11.5, platelet count 444,000 and MCV 82 on 07/22/2017. Sodium 134, potassium 4.1 and creatinine 0.3. Total bilirubin 0.5, AST 11, ALT 12, alkaline phosphatase of 121. Albumin 3.1. Total protein 7.6. IMPRESSION AND PLAN: 1. Esophageal cancer suspected at that time of upper endoscopy on 07/23/2017, involving the distal esophagus and extending into the cardiac. CT scan of the abdomen and pelvis does not reveal any evidence of distant metastatic disease. I will also obtain a CT scan of the chest for staging workup. She would also need staging evaluation with an endoscopic ultrasound and then, she would likely need chemotherapy and radiation therapy, followed by surgery if there are no contraindications. I will await the pathology results from the endoscopy and biopsy. I discussed in detail with the patient and she understands and agrees with the plan. 2. Anemia, mild, with hemoglobin of 11.5 on 07/22/2017. I will check iron studies, B12, folic acid levels and reticulocyte count. 3. Thrombocytosis. Platelet count was 537,000 on 07/21/2017. This is a reactive thrombocytosis due to malignancy. I will also evaluate for iron deficiency. 4. Dysphagia. Appreciate GI evaluation. FIFI CUEVAS MD DR: MIYA/cr JOB#: [id number] / [id number] ROYER
[2017-07-24 03:00] VITALS: BP 124/78
[2017-07-24] MEDS: ACETAMINOPHEN 650 MG/20.3 ML SOLUTION. PO PRN (04:48)
[2017-07-24 05:52] LABS: % SAT IRON 25 % (15-34); IRON,SERUM 30 ug/dL (50-170)
[2017-07-24 07:00] VITALS: BP 123/73
[2017-07-24 08:53] LABS: FOLATE 3.56 ng/ml (3.2-20.0)
--- NOTE | 2017-07-24 08:54 | PDOC ---
PROGRESS NOTES Subjective Subjective c/c - f/u of Esophageal cancer ROS - no dysphagia Objective Objective Vital Signs Date Time Temp Pulse Resp B/P (MAP) Pulse Ox O2 Delivery O2 Flow Rate FiO2 07/24/17 03:00 97.7 79 18 124/78 (93) 99 Room Air 97.7 07/23/17 20:00 2.0 Physical Exam Heart: Normal S1, Normal S2 General: Alert, Oriented X3 Lungs: Clear to auscultation Neuro: Normal speech Psych/Mental Status: Mental status NL Assessment Assessment IMPRESSION AND PLAN: 1. Esophageal cancer suspected at upper endoscopy on 07/23/2017, involving the distal esophagus and extending into the cardiac. CT scan of the abdomen and pelvis does not reveal any evidence of distant metastatic disease. I will also obtain a CT scan of the chest for staging workup. She would also need staging evaluation with an endoscopic ultrasound and then, she would need chemotherapy and radiation therapy, followed by surgery if there are no contraindications. I will await the pathology results from the endoscopy and biopsy. I discussed in detail with the patient and she understands and agrees with the plan. Consult Rad onc. I d/w RN 2. Anemia, mild, with hemoglobin of 11.5 on 07/22/2017. Iron studies do not reveal a deficiency. B12, folic acid levels are pending. 3. Thrombocytosis. Platelet count was 537,000 on 07/21/2017. This is a reactive thrombocytosis due to malignancy. 4. Dysphagia. Appreciate GI evaluation. Comment Review of Relevant I have reviewed the following items josué (where applicable) has been applied. Labs Laboratory Tests Test 07/23/17 08:40 07/24/17 04:38 Sodium Level 134 mmol/L (136-145) Potassium Level 4.1 mmol/L (3.5-5.1) Chloride Level 102 mmol/L (98-107) Carbon Dioxide Level 27 mmol/L (21-32) Anion Gap 5 (6-14) Blood Urea Nitrogen 7 mg/dL (7-20) Creatinine 0.3 mg/dL (0.6-1.0) Estimated GFR (Cockcroft-Gault) 226.9 Glucose Level 76 mg/dL (70-99) Calcium Level 8.9 mg/dL (8.5-10.1) Reticulocyte Count (auto) 0.6 % (0.5-2.5) Iron Level 30 ug/dL (50-170) Total Iron Binding Capacity 121 ug/dL (250-450) Iron Saturation 25 % (15-34) Ferritin 168 ng/mL (8-252) Laboratory Tests Test 07/24/17 04:38 Reticulocyte Count (auto) 0.6 % (0.5-2.5) Iron Level 30 ug/dL (50-170) Total Iron Binding Capacity 121 ug/dL (250-450) Iron Saturation 25 % (15-34) Ferritin 168 ng/mL (8-252) Microbiology 07/22/17 Urine Culture - Final, Complete 07/22/17 Urine Culture Result 1 (RAEANN) - Final, Complete Medications Current Medications Sodium Chloride 1,000 ml @ 75 mls/hr [id number] IV Last administered on 17:45; Start 07/21/17 at 16:27; Stop 07/21/17 at 21:54; Status DC Ondansetron HCl (Zofran) 4 mg PRN Q6HRS PRN IV NAUSEA/VOMITING; Start 07/21/17 at 16:30 Acetaminophen (Tylenol) 650 mg PRN Q6HRS PRN PO PAIN; Start 07/21/17 at 16:30; Stop 07/21/17 at 18:41; Status DC Iohexol (Omnipaque 240 Mg/ml) 30 ml 1X ONCE PO Last administered on 07/22/17 10:28; Start 07/21/17 at 16:45; Stop 07/21/17 at 16:46; Status DC Info (Do NOT chart on this entry -- for MONITORING) 1 each PRN DAILY PRN MC SEE COMMENTS; Start 07/21/17 at 17:00; Stop 07/23/17 at 16:59; Status DC Acetaminophen (Tylenol) 650 mg PRN Q6HRS PRN PO MILD PAIN / TEMP Last administered on 07/24/17 04:48; Start 07/21/17 at 18:45 Pneumococcal Polyvalent Vaccine (Do NOT chart on this placeholder) 1 each 1X ONCE MC ; Start 07/21/17 at 19:15; Stop 07/21/17 at 19:16; Status UNV Pneumococcal Polyvalent Vaccine (Pneumovax 23) 0.5 ml ONCE ONCE VAX IM Last administered on 9/12/17at 20:05; Start 07/21/17 at 19:30; Stop 07/21/17 at 19:31 ; Status DC Potassium Chloride 40 meq/ Sodium Chloride 1,020 ml @ 75 mls/hr [id number] IV Last administered on 07/23/17 15:48; Start 07/21/17 at 23:00 Iohexol (Omnipaque 240 Mg/ml) 50 ml STK-MED ONCE .ROUTE ; Start 07/22/17 at 08: 45; Stop 07/22/17 at 08:46; Status DC Ondansetron HCl (Zofran) 4 mg PRN Q6HRS PRN IV NAUSEA/VOMITING; Start 07/23/17 at 07:00; Stop 07/23/17 at 18:00; Status DC Fentanyl Citrate (Fentanyl 2ml Vial) 25 mcg PRN Q5MIN PRN IV MILD PAIN; Start 07/23/17 at 07:00; Stop 07/23/17 at 18:00; Status DC Fentanyl Citrate (Fentanyl 2ml Vial) 50 mcg PRN Q5MIN PRN IV MODERATE PAIN; Start 07/23/17 at 07:00; Stop 07/23/17 at 18:00; Status DC Morphine Sulfate 1 mg PRN Q10MIN PRN IV SEVERE PAIN; Start 07/23/17 at 07:00; Stop 07/23/17 at 18:00; Status DC Ringer's Solution 1,000 ml @ 30 mls/hr Q24H IV Last administered on 07/23/17 11:26; Start 07/23/17 at 07:00; Stop 07/23/17 at 18:59; Status DC Lidocaine HCl 2 ml PRN 1X PRN ID PRIOR TO IV START; Start 07/23/17 at 07:00; Stop 07/23/17 at 18:00; Status DC Hydromorphone HCl (Dilaudid) 0.5 mg PRN Q10MIN PRN IV SEV PAIN, Second choice; Start 07/23/17 at 07:00; Stop 07/23/17 at 18:00; Status DC Prochlorperazine Edisylate (Compazine) 5 mg PACU PRN PRN IV NAUSEA, MRX1; Start 07/23/17 at 07:00; Stop 07/23/17 at 18:00; Status DC Midazolam HCl (Versed) 2 mg PRN 1X PRN IV PRIOR TO PROCEDURE; Start 07/23/17 at 11:30; Stop 07/24/17 at 11:29 Fentanyl Citrate (Fentanyl 2ml Vial) 25 mcg PRN Q5MIN PRN IV X 2 DOSES FOR PAIN ; Start 07/23/17 at 11:30; Stop 07/24/17 at 11:29 Fentanyl Citrate (Fentanyl 2ml Vial) 50 mcg PRN Q5MIN PRN IV X 2 DOSES FOR PAIN ; Start 07/23/17 at 11:30; Stop 07/24/17 at 11:29 Ringer's Solution 1,000 ml @ 125 mls/hr Q8H IV ; Start 07/23/17 at 11:24; Stop 07/23/17 at 23:23; Status DC Lidocaine HCl 2 ml 1X PRN PRN ID IV START; Start 07/23/17 at 11:30; Stop at 11:29 Propofol 20 ml @ As Directed STK-MED ONCE IV ; Start 07/23/17 at 11:44; Stop at 11:45; Status DC Lidocaine HCl (Lidocaine Pf 2% Vial) 5 ml STK-MED ONCE .ROUTE ; Start 07/23/17 at 11:44; Stop 07/23/17 at 11:45; Status DC Active Scripts Active Reported Aspir 81 (Aspirin) 81 Mg Tablet.dr 81 Mg PO DAILY Vitals/I & O Vital Sign - Last 24 Hours 07/23/17 07/23/17 07/23/17 07/23/17 11:00 11:20 11:23 11:39 Temp 97.1 99.3 97.1 99.3 Pulse 70 69 74 Resp 17 20 B/P (MAP) 110/65 (80) 120/66 (84) Pulse Ox 99 99 97 O2 Delivery Room Air Room Air Room Air 07/23/17 07/23/17 07/23/17 07/23/17 11:45 12:00 12:00 12:15 Temp 97 97.0 Pulse 71 98 74 84 Resp 16 18 B/P (MAP) 107/71 (83) 145/64 122/74 (90) 106/70 Pulse Ox 98 98 97 99 O2 Delivery Room Air Room Air Room Air Room Air Nasal Cannula O2 Flow Rate 2 07/23/17 07/23/17 07/23/1714/17 12:30 13:00 15:00 16:00 Temp 97.7 97.7 Pulse 81 73 65 80 Resp 17 17 B/P (MAP) 85/67 (73) 122/67 (85) 98/54 (69) 121/72 (88) Pulse Ox 99 99 100 98 O2 Delivery Room Air Room Air Room Air Room Air 07/23/17 07/23/17 07/23/17 07/24/17 19:00 20:00 23:00 03:00 Temp 97.7 97.9 97.7 97.7 97.9 97.7 Pulse 80 70 79 Resp 18 18 18 B/P (MAP) 106/69 (81) 109/65 (80) 124/78 (93) Pulse Ox 97 99 99 O2 Delivery Room Air Room Air Room Air Room Air O2 Flow Rate 2.0 Nutrition Consultation Dietary Evaluation: Recommendations by RD: Increase Calorie Intake, Protein supplementation Comments: diet adv per gi w/ Ensure supplements ppn if unable to initate a po diet within next 24-48 hr Expected Outcomes/Goals: to meet > 75% est nutr needs Interpretation of weight loss: >20% in 1 year Malnutrition Findings: Food and Nutrition Intake (Sev: <50% est energy req 5days Body Fat Depletion (Non Severe: Mod to Severe Weight Status: Underweight FIFI CUEVAS MD Jul 24, 2017 08:54
[2017-07-24] MEDS ORDERED: IOHEXOL 300 MG/ML 75 ML VIAL IV ONE (09:00)
[2017-07-24] MEDS ORDERED: CONTRAST GIVEN MC PRN (09:15)
[2017-07-24 11:00] VITALS: BP 101/66
--- NOTE | 2017-07-24 11:15 | RAD ---
Indication esophageal malignancy. Contrast imaging through the chest was performed. Approximately 75 cc of Omnipaque 300 was administered. Note is made of the CT examination of the abdomen and pelvis 07/22/2017 and the accompanying report. Soft tissue fullness, compatible with the provided diagnosis of esophageal malignancy, is noted involving the distal esophagus and fundus of the stomach. No new finding in the upper abdomen is seen relative to the recent examination of the abdomen and pelvis. There are several nodules seen in both lobes of the thyroid. These are likely incidental but the thyroid could be further evaluated with nonemergent ultrasound. The thoracic aorta appears unremarkable. There is some coronary artery calcification. No significant hilar or mediastinal adenopathy is seen. There is a tiny calcified nodule in the right upper lobe. A dominant soft tissue mass is not seen in the chest. There is no definite evidence of metastatic disease. IMPRESSION: Soft tissue mass associated with the distal esophagus and fundus of the stomach compatible with the provided diagnosis of esophageal malignancy. No acute finding in the chest. No evidence of metastatic disease. Thyroid nodules. These are likely incidental but additional evaluation of the thyroid could be performed with nonemergent ultrasound PQRS Compliance Statement: One or more of the following individualized dose reduction techniques were utilized for this examination: 1. Automated exposure control 2. Adjustment of the mA and/or kV according to patient size 3. Use of iterative reconstruction technique
[2017-07-24] MEDS: POTASSIUM CHLORIDE 40 MEQ in IV 1/2 NORMAL SALINE 1,000 ML IV SCH (11:22)
--- NOTE | 2017-07-24 12:09 | CONS ---
DATE OF CONSULTATION: 07/23/2017 REFERRING PHYSICIAN: Dr. Rashawn Foster. 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 She has just undergone upper endoscopy and biopsy earlier today. We were asked to see her regarding the potential role of radiation treatment in her care. HISTORY OF PRESENT ILLNESS: The patient is a 62-year-old woman who over the last year has noted significant weight loss from a base weight of 190 pounds to a weight of 110 pounds or so. In the past, she had a heartburn that was chronic in nature and then suddenly cleared over the last several months. Following this, she developed some intolerance of food with no difficulty swallowing. She ended up spitting up some clear sputum and intact food with no true nausea or abdominal pain. Over the last several days, she could not keep anything down and got progressively weak and dehydrated. Overall, she may have lost 80 pounds, although she will not acknowledge her current weight at this time. She was seen by Dr. Wolf Goodwin and admitted for evaluation and rehydration. She did undergo a CT scan of the abdomen, which revealed a thickened expanded distal esophagus extending into a proximal stomach mass compatible with likely underlying malignancy. Imaging lacked contrast, there were no overt visible retroperitoneal lymph nodes or liver metastases or ascites on my review. She has just undergone upper endoscopy by Dr. Gonzalo Pineda. This revealed an obvious esophageal tumor starting at 19 cm extending into the gastric cardia. GE junction was seen at 39 cm. Biopsies were taken. In the stomach, there was tumor in the cardia extending up towards the fundus. Biopsy of the cardia were obtained; distally, it was normal in appearance. Since admission, she is feeling much better as a result of rehydration and correction of her hypokalemia. On admission, her potassium was 3.1. Currently, she has no nausea or vomiting. She is not tolerating a full liquid diet well and feeling much better as noted, she has no abdominal pain. PAST MEDICAL HISTORY: Unremarkable. She has had no significant surgeries or chronic illnesses in the past. ALLERGIES: PENICILLIN, SULFA. MEDICATIONS: Limited to aspirin prior to admission. FAMILY HISTORY: Mother had colon cancer and survived this, now suffering from Alzheimer's disease and is alive at age 81. SOCIAL HISTORY: She is for 16 years. She has one son living in [place]. She has smoked less than a pack a day from age 20 to age 62, rarely uses alcohol. She quit smoking at the time of her diagnosis. She works for [employer] in sales. PHYSICAL EXAMINATION: GENERAL: Revealed an elderly-appearing woman, appearing older than her chronologic age. HEENT: Unremarkable. She had fair dentition. LYMPH NODES: She had no cervical or supraclavicular adenopathy. LUNGS: Clear to percussion. HEART: Regular. ABDOMEN: Revealed no hepatomegaly, masses or tenderness. No distention. EXTREMITIES: Reveal no clubbing, cyanosis or edema. NEUROLOGIC: She had no focal neurologic deficits. LABORATORY STUDIES: CBC from today; hemoglobin 11.5, white count 15,200, platelet count 444,000. Chemistry panel: Sodium 134, potassium 4.1, creatinine 0.3, calcium 8.9. Initial liver function tests revealed normal AST 11, ALT 12 and alkaline phosphatase 121. 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 Her imaging thus far is limited to an unenhanced CT scan of the abdomen limiting the value of liver and imaging and retroperitoneal imaging. At this time, I would recommend stabilization and completion staging ideally with a PET CT scan and short of that a CT scan of the chest. Her disease appears to be quite extensive regionally and is likely beyond the capacity of surgical resection even with neoadjuvant chemo and radiation therapy and thus chemo and radiation therapy are likely to be the primary treatment in the event we confirm that she has no occult metastatic disease. In light of her normal swallowing, I did not feel a compelling need to recommend a gastrostomy tube at this time, although that can be readdressed in the event she truly has swallowing difficulty in the future. I outlined my overall recommendations with the patient and her . I will review my recommendations with Dr. Foster as well as the pursuit of completion staging evaluation. Thank you for allowing us to participate in her evaluation. Sincerely yours, WILBERT GRACIA MD DR: RYLEY/cr JOB#: [id number] / [id number] ALIZA Silverio MD, Gavino LINTON
--- NOTE | 2017-07-24 12:21 | PDOC ---
Subjective: Subjective: Doing well with diet, denies dysphagia. Objective: Objective: Reviewed other notes. Vital Signs: Vital Signs Date Time Temp Pulse Resp B/P (MAP) Pulse Ox O2 Delivery O2 Flow Rate FiO2 07/24/17 08:00 Room Air 07/24/17 07:00 97.5 67 18 123/73 (90) 99 97.5 07/23/17 20:00 2.0 Labs: Laboratory Tests Test 07/24/17 04:38 Reticulocyte Count (auto) 0.6 % Iron Level 30 ug/dL Total Iron Binding Capacity 121 ug/dL Iron Saturation 25 % Ferritin 168 ng/mL Vitamin B12 Level 1150 pg/mL Serum Folate 3.56 ng/ml Imaging: CT chest IMPRESSION: Soft tissue mass associated with the distal esophagus and fundus of the stomach compatible with the provided diagnosis of esophageal malignancy. No acute finding in the chest. No evidence of metastatic disease. Thyroid nodules. These are likely incidental but additional evaluation of the thyroid could be performed with nonemergent ultrasound. EGD E--obvious tumor starting at 19cm, extending into cardia. GEJ at 39cm. Biopsies taken. G--tumor in cardia, extending up toward fundus. Biopsies of cardiac portion. D--Normal to second portion. 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 Process seems to extend into cardia /fundus. PE: GEN: NAD LUNGS: CTAB HEART: RRR ABD: NABS, S/ND/NT NEURO/PSYCH: A & O 3 A/P: Esophageal malignancy -- Currently w/o dysphagia. Await pathology. EDUAR KING Jul 24, 2017 12:21
--- NOTE | 2017-07-24 13:16 | PDOC ---
PROGRESS NOTES Subjective Subjective Pt awake and pleasant in conversation. Pt states she has been tolerating a clear liquid diet and has not been spitting up as much. Pt states she had a good BM this am. Pt denies pain. Objective Objective Pt awake and alert. NAD. VSS. Afebrile. Lungs CTA bilat. Resp even and unlabored. Heart with RRR. no murmurs. No pedal edema. Abdomen soft, nondistended, and nontender. Vital Signs Date Time Temp Pulse Resp B/P (MAP) Pulse Ox O2 Delivery O2 Flow Rate FiO2 07/24/17 11:00 97.6 60 14 101/66 (78) 98 Room Air 97.6 07/23/17 20:00 2.0 Plan Plan of Care 1) Esophageal CA -GI consulting -CT this 07/23: "There is suggested thickening involving the visualized distal esophagus and fundus of the stomach. Inflammation or neoplastic disease are not excluded. Endoscopy should be considered." -EGD 07/24. Final path report pending. -Oncology consulting -CT Chest this am: "Soft tissue mass associated with the distal esophagus and fundus of the stomach compatible with the provided diagnosis of esophageal malignancy. No acute finding in the chest. No evidence of metastatic disease. Thyroid nodules. These are likely incidental but additional evaluation of the thyroid could be performed with nonemergent ultrasound" 2) Dehydration with Hypokalemia and Hyponatremia -K 3.1 on 07/21, 40mEq of K added to IVS of NS. -Na 134 07/23, K 4.1 -IVF dc'd this am secondary to pt tolerating liquid diet. Spoke with Dr Foster per phone whom agreed for pt to Dc home today with further w/ u completed as outpt. Pt may advance diet as tolerated. Activity as tolerated. Resume previous home medications. Pt to f/u with Dr Sepulveda in 1-2 weeks ([phone]). Dr Foster's office will contact patient regarding f/u in their office. Comment Review of Relevant I have reviewed the following items josué (where applicable) has been applied. Labs Laboratory Tests Test 07/23/17 08:40 07/24/17 04:38 Sodium Level 134 mmol/L (136-145) Potassium Level 4.1 mmol/L (3.5-5.1) Chloride Level 102 mmol/L (98-107) Carbon Dioxide Level 27 mmol/L (21-32) Anion Gap 5 (6-14) Blood Urea Nitrogen 7 mg/dL (7-20) Creatinine 0.3 mg/dL (0.6-1.0) Estimated GFR (Cockcroft-Gault) 226.9 Glucose Level 76 mg/dL (70-99) Calcium Level 8.9 mg/dL (8.5-10.1) Reticulocyte Count (auto) 0.6 % (0.5-2.5) Iron Level 30 ug/dL (50-170) Total Iron Binding Capacity 121 ug/dL (250-450) Iron Saturation 25 % (15-34) Ferritin 168 ng/mL (8-252) Vitamin B12 Level 1150 pg/mL (247-911) Serum Folate 3.56 ng/ml (3.2-20.0) Laboratory Tests Test 07/24/17 04:38 Reticulocyte Count (auto) 0.6 % (0.5-2.5) Iron Level 30 ug/dL (50-170) Total Iron Binding Capacity 121 ug/dL (250-450) Iron Saturation 25 % (15-34) Ferritin 168 ng/mL (8-252) Vitamin B12 Level 1150 pg/mL (247-911) Serum Folate 3.56 ng/ml (3.2-20.0) Microbiology 07/22/17 Urine Culture - Final, Complete 07/22/17 Urine Culture Result 1 (RAEANN) - Final, Complete Medications Current Medications Sodium Chloride 1,000 ml @ 75 mls/hr [id number] IV Last administered on 17:45; Start 07/21/17 at 16:27; Stop 07/21/17 at 21:54; Status DC Ondansetron HCl (Zofran) 4 mg PRN Q6HRS PRN IV NAUSEA/VOMITING; Start 07/21/17 at 16:30 Acetaminophen (Tylenol) 650 mg PRN Q6HRS PRN PO PAIN; Start 07/21/17 at 16:30; Stop 07/21/17 at 18:41; Status DC Iohexol (Omnipaque 240 Mg/ml) 30 ml 1X ONCE PO Last administered on 07/22/17 10:28; Start 07/21/17 at 16:45; Stop 07/21/17 at 16:46; Status DC Info (Do NOT chart on this entry -- for MONITORING) 1 each PRN DAILY PRN MC SEE COMMENTS; Start 07/21/17 at 17:00; Stop 07/23/17 at 16:59; Status DC Acetaminophen (Tylenol) 650 mg PRN Q6HRS PRN PO MILD PAIN / TEMP Last administered on 07/24/17 04:48; Start 07/21/17 at 18:45 Pneumococcal Polyvalent Vaccine (Do NOT chart on this placeholder) 1 each 1X ONCE MC ; Start 07/21/17 at 19:15; Stop 07/21/17 at 19:16; Status UNV Pneumococcal Polyvalent Vaccine (Pneumovax 23) 0.5 ml ONCE ONCE VAX IM Last administered on 07/21/17 20:05; Start 07/21/17 at 19:30; Stop 07/21/17 at 19:31 ; Status DC Potassium Chloride 40 meq/ Sodium Chloride 1,020 ml @ 75 mls/hr [id number] IV Last administered on 07/23/17 15:48; Start 07/21/17 at 23:00 Iohexol (Omnipaque 240 Mg/ml) 50 ml STK-MED ONCE .ROUTE ; Start 07/22/17 at 08: 45; Stop 07/22/17 at 08:46; Status DC Ondansetron HCl (Zofran) 4 mg PRN Q6HRS PRN IV NAUSEA/VOMITING; Start 07/23/17 at 07:00; Stop 07/23/17 at 18:00; Status DC Fentanyl Citrate (Fentanyl 2ml Vial) 25 mcg PRN Q5MIN PRN IV MILD PAIN; Start 07/23/17 at 07:00; Stop 07/23/17 at 18:00; Status DC Fentanyl Citrate (Fentanyl 2ml Vial) 50 mcg PRN Q5MIN PRN IV MODERATE PAIN; Start 07/23/17 at 07:00; Stop 07/23/17 at 18:00; Status DC Morphine Sulfate 1 mg PRN Q10MIN PRN IV SEVERE PAIN; Start 07/23/17 at 07:00; Stop 07/23/17 at 18:00; Status DC Ringer's Solution 1,000 ml @ 30 mls/hr Q24H IV Last administered on 9/14/17at 11:26; Start 07/23/17 at 07:00; Stop 07/23/17 at 18:59; Status DC Lidocaine HCl 2 ml PRN 1X PRN ID PRIOR TO IV START; Start 07/23/17 at 07:00; Stop 07/23/17 at 18:00; Status DC Hydromorphone HCl (Dilaudid) 0.5 mg PRN Q10MIN PRN IV SEV PAIN, Second choice; Start 07/23/17 at 07:00; Stop 07/23/17 at 18:00; Status DC Prochlorperazine Edisylate (Compazine) 5 mg PACU PRN PRN IV NAUSEA, MRX1; Start 07/23/17 at 07:00; Stop 07/23/17 at 18:00; Status DC Midazolam HCl (Versed) 2 mg PRN 1X PRN IV PRIOR TO PROCEDURE; Start 07/23/17 at 11:30; Stop 07/24/17 at 11:29; Status DC Fentanyl Citrate (Fentanyl 2ml Vial) 25 mcg PRN Q5MIN PRN IV X 2 DOSES FOR PAIN ; Start 07/23/17 at 11:30; Stop 07/24/17 at 11:29; Status DC Fentanyl Citrate (Fentanyl 2ml Vial) 50 mcg PRN Q5MIN PRN IV X 2 DOSES FOR PAIN ; Start 07/23/17 at 11:30; Stop 07/24/17 at 11:29; Status DC Ringer's Solution 1,000 ml @ 125 mls/hr Q8H IV ; Start 07/23/17 at 11:24; Stop 07/23/17 at 23:23; Status DC Lidocaine HCl 2 ml 1X PRN PRN ID IV START; Start 07/23/17 at 11:30; Stop at 11:29; Status DC Propofol 20 ml @ As Directed STK-MED ONCE IV ; Start 07/23/17 at 11:44; Stop at 11:45; Status DC Lidocaine HCl (Lidocaine Pf 2% Vial) 5 ml STK-MED ONCE .ROUTE ; Start 07/23/17 at 11:44; Stop 07/23/17 at 11:45; Status DC Iohexol (Omnipaque 300 Mg/ml) 75 ml 1X ONCE IV Last administered on 07/24/17t 10:43; Start 07/24/17 at 09:00; Stop 07/24/17 at 09:03; Status DC Info (Do NOT chart on this entry -- for MONITORING) 1 each PRN DAILY PRN MC SEE COMMENTS; Start 07/24/17 at 09:15; Stop 07/26/17 at 09:14 Active Scripts Active Reported Aspir 81 (Aspirin) 81 Mg Tablet.dr 81 Mg PO DAILY Vitals/I & O Vital Sign - Last 24 Hours 07/23/17 07/23/17 07/23/17 07/23/17 15:00 16:00 19:00 20:00 Temp 97.7 97.7 97.7 97.7 Pulse 65 80 80 Resp 17 17 18 B/P (MAP) 98/54 (69) 121/72 (88) 106/69 (81) Pulse Ox 100 98 97 O2 Delivery Room Air Room Air Room Air Room Air O2 Flow Rate 2.0 07/23/17 07/24/17 07/24/17 07/24/17 23:00 03:00 07:00 08:00 Temp 97.9 97.7 97.5 97.9 97.7 97.5 Pulse 70 79 67 Resp 18 18 18 B/P (MAP) 109/65 (80) 124/78 (93) 123/73 (90) Pulse Ox 99 99 99 O2 Delivery Room Air Room Air Room Air Room Air 07/24/17 11:00 Temp 97.6 97.6 Pulse 60 Resp 14 B/P (MAP) 101/66 (78) Pulse Ox 98 O2 Delivery Room Air Nutrition Consultation Dietary Evaluation: Recommendations by RD: Increase Calorie Intake, Protein supplementation Comments: diet adv per gi w/ Ensure supplements ppn if unable to initate a po diet within next 24-48 hr Expected Outcomes/Goals: to meet > 75% est nutr needs Interpretation of weight loss: >20% in 1 year Malnutrition Findings: Food and Nutrition Intake (Sev: <50% est energy req 5days Body Fat Depletion (Non Severe: Mod to Severe Weight Status: Underweight ALIZA SEPULVEDA MD Jul 24, 2017 13:16
[2017-07-24 14:59] VITALS: BP 102/64
--- NOTE | 2017-07-24 15:33 | PDOC ---
Provider Note Provider Note Feeling much better overall. Happy to be discharged soon. Eating and enjoying food. CT chest revealed distal esophageal mass extending into prox stomach with no metastatic disease in lung or visualized liver or retroperitoneum. Biopsy result in progress will be available Thursday. Impression: Regionally extensive non-metastatic esophageal carcinoma. Swallowing well so no urgent need for PEG tube. Plan on initial radiation and chemotherapy. Need PET/CT to complete staging. This will also be valuable to identify proximal and distal extent of disease to aid in radiation treatment planning. I will arrange PET/CT for next week. Discussed with patient and family and Dr. Foster. WILBERT GRACIA MD Jul 24, 2017 15:33
--- NOTE | 2017-07-24 18:35 | DS ---
DATE OF DISCHARGE: 07/24/2017 This is Jenn Ashton dictating on behalf of Dr. Aliza Sepulveda. DISCHARGE DIAGNOSIS: Esophageal cancer. HISTORY OF PRESENT ILLNESS: This is a 62-year-old female who is new to me at our office. The patient presented to the clinic on the date of admission with complaints of an 80-pound weight loss over the previous last year and difficulty swallowing at times. The patient stated that she did not have nausea and vomiting; however, did tend to spit per saliva, which was more prominent following meals. The patient denied pain. Stated that her bowel movements have been normal and upon evaluation in the Emergency Room, the patient was found to be dehydrated with hypokalemia and hyponatremia. The patient was admitted to the hospital for further evaluation and workup. SUMMARY OF STAY: The patient was started on IV fluids and the potassium was replaced. The patient did quickly perk up from the IV fluids. A CT of her abdomen did reveal thickening around the distal esophagus and fundus of the stomach. An EGD was performed on July 24, which revealed a high suspicion of neoplasm. A biopsy was obtained and Oncology was consulted. A CT of the chest was done on July 24, which confirmed the soft tissue mass of the distal esophagus and fundus. There were no acute findings of the chest and no evidence of metastatic disease elsewhere. The CT of the chest did reveal some thyroid nodules which were thought to be incidental. On the morning of discharge, the patient continued to deny any pain, stated that she was tolerating a liquid diet and had had bowel movements consistently for the previous 2 days. The patient stated that she felt much better following the IV fluids. The patient was aware of her diagnosis and concurrent plan of treatment. The patient denied further questions at this time. DIET: The patient is to advance her diet as tolerated at home. ACTIVITY: As tolerated. DISCHARGE MEDICATIONS: The patient will be discharged on her only medication of aspirin 81 mg daily. FOLLOWUP: The patient is to follow up with Dr. Sepulveda in 1-[address] Foster's office will be contacting the patient for further testing and followup in their office. ALIZA SEPULVEDA MD DR: PADMINI/cr JOB#: [id number] / [id number]
--- NOTE | 2017-07-28 10:22 | PATHOLOGY ---
PATHOLOGY REPORT * * * * * * * * FINAL DIAGNOSIS: A. Squamous and glandular mucosa, "gastric cardia mass": - Esophageal ulceration with reactive squamous mucosa and underlying chronic inflammation and fibrosis. - The gastric epithelium reveals Helicobacter pylori organisms that are positive. - There is no evidence of goblet cell metaplasia and dysplasia. (see comment) B. Squamous mucosa, "esophagus biopsy at 20 cm": - Acute esophageal ulcer with necrotic acute inflammatory exudate and with underlying atypical squamous proliferation. - The GMS stain for fungus is positive. - There is no evidence of goblet cell metaplasia. - (see comment) COMMENT: There is an atypical squamous proliferation with squamous pearls limited by marked inflammation. A malignancy cannot be ruled out. Suggest rebiopsy after clearing inflammation to rule out a more serious process. This case is also reviewed by Dr. Kylee Ro and Sanya Walter. ([facility]:r; 07/24/2017) Special Stain: GMS REPORT ELECTRONICALLY SIGNED BY: Cain Ramos M.D. for Sanya Walter M.D. DATE/TIME: 07/28/2017 10:21 * * * * * * * * GROSS PATHOLOGY: A. Received in formalin labeled "Pam Villarreal, gastric cardia mass," are 3 segments of curtis soft tissue measuring from less than 0.1 up to 0.3 cm in maximum dimension. The specimen is submitted entirely in cassette A1. An immunoperoxidase stain for Helicobacter Pylori will be obtained. B. Received in formalin labeled "esophagus 20 cm," are multiple segments of curtis soft tissue measuring from less than 0.1 up to 0.3 cm in maximum dimension. The specimen is submitted entirely in cassette B1. ([facility]; 07/23/17) INITIAL CPT CODE(S): A; 22429, 05001 B; 03659, 22954 Professional services performed by [facility] at [facility] [address] [place] [id number] Technical services performed by [facility] at [address] [place] [address], [address], [place] [address]. SPECIMEN(S) RECEIVED: A.Gastric cardia mass B.Esophagus biopsy 20cm CLINICAL HISTORY: Malnutrition, weight loss; mass PATIENT: PAM VILLARREAL /AGE: 907/21/1955 (Age: 62) PATIENT #: [id number] ALT CASE #: SPECIMEN COLLECTION DATE: 07/23/2017 SPECIMEN RECEIVED DATE: 07/23/2017 [facility] - [id number] [place] [address] - PHONE: [phone] * * * END OF REPORT * * *
== END 2017-07-24 15:44 | disposition home or self-care (01) | DRG 375 ==
LOC: 5 NORTH 15:39
PROVIDERS: ADMIT Family Medicine; ATTEND Family Medicine
PROC: 0DB58ZX Excision of Esophagus, Via Natural or Artificial Opening Endoscopic, Diagnostic (ICD-10-PCS; principal; 2017-07-23 13:00)
PROC: 0DB68ZX Excision of Stomach, Via Natural or Artificial Opening Endoscopic, Diagnostic (ICD-10-PCS; 2017-07-23 13:00)
DX: C15.5 Malignant neoplasm of lower third of esophagus (principal); E87.1 Hypo-osmolality and hyponatremia; R64 Cachexia; Z68.1 Body mass index [BMI] 19.9 or less, adult; E86.0 Dehydration; D47.3 Essential (hemorrhagic) thrombocythemia; E04.2 Nontoxic multinodular goiter; E87.6 Hypokalemia; F17.210 Nicotine dependence, cigarettes, uncomplicated; K21.9 Gastro-esophageal reflux disease without esophagitis; R13.10 Dysphagia, unspecified; Z80.0 Family history of malignant neoplasm of digestive organs; Z82.0 Family history of epilepsy and other diseases of the nervous system; D64.9 Anemia, unspecified; R63.4 Abnormal weight loss
CPT/HCPCS: 36415; 71260; 74176; 80048; 80053; 81001; 82150; 82607; 82728; 82746; 83540; 83550; 83690; 84443; 85025; 85027; 85045; 87086; 90732; J2704; J7120; Q9966; Q9967; J2001

== ENCOUNTER → 2017-07-30 | Outpatient (CLI) | payer BC ==
[2017-07-24 14:59] VITALS: BP 102/64
[~2017-07-30] MED LIST: ASPI-482 PO
--- NOTE | 2017-07-30 14:31 | RAD ---
Indication esophageal malignancy. Staging PET/CT was performed from the skull through the proximal thigh. CT was performed primarily for attenuation and localization purposes as opposed to primary diagnostic purposes. The blood sugar during the examination was 83. 13 mCi of FDG is administered. No prior PET/CT imaging is available. Note is made of CT examinations of the abdomen and pelvis 9 x [address] examination of the chest 07/24/2017. On CT the visualized brain appears unremarkable. The neck appears unremarkable. Known thickening associated with the distal esophagus and fundus of the stomach is noted. The appearance of the chest abdomen and pelvis has not changed relative to the recent CT examinations referenced above. On PET there is normal physiologic FDG activity in the visualized brain. No abnormal activity is seen in the neck. The soft tissue fullness in the distal esophagus and extending into the fundus of the stomach is markedly FDG avid. Maximum SUVs are approximately 6.4. There is no evidence of metastatic disease. No abnormal activity is seen in the hilar areas are in the mediastinum. In the abdomen and pelvis there is an isolated focus of increased FDG activity in the right colon, probably in the cecum or ascending colon. While this may be related to stool the intensity of the uptake appears to be relatively isolated in this area. Maximum SUV is approximately 4. If colonoscopy has not been recently performed this should be considered. An independent colonic lesion is not excluded. There is an isolated focus of increased activity in the right breast. Maximum SUV is approximately 3.4. In retrospect this corresponds to a focus of increased vascularity on the CT examination of the chest obtained 07/24/2027 (image 38 series 2). Findings associated with the right breast are most compatible with a primary breast malignancy. Mammography and targeted ultrasound are advised in anticipation of biopsy. IMPRESSION: Increased FDG activity in the distal esophagus and fundus of the stomach corresponding to the areas of soft tissue thickening seen on recent CT examinations. Findings are compatible with primary malignancy. There is no evidence of distant metastatic disease or metastatic disease to the mediastinum. Isolated focus of increased FDG activity in the right breast most compatible with a second primary malignancy. Increased activity in the right colon may be related to stool. Malignancy in the right colon is not excluded and colonoscopy, if not recently performed, should be considered. There is an isolated focus
== END | disposition home or self-care (01) ==
LOC: PETSC 11:05
PROVIDERS: ATTEND Radiology Radiation Oncology
DX: C80.1 Malignant (primary) neoplasm, unspecified (principal)
CPT/HCPCS: 78815; A9552

== ENCOUNTER → 2017-09-01 | Outpatient (CLI) | payer BC ==
--- NOTE | 2017-09-01 13:20 | RAD ---
DATE: 09/01/2017 EXAM: DIGITAL DIAGNOSTIC BILATERAL, BREAST RIGHT HISTORY: History of esophageal cancer. Palpable right breast lump. COMPARISON: None available. This study was interpreted with the benefit of Computerized Aided Detection (CAD). The breast parenchyma is dense, which could reduce the sensitivity of mammography. Breast parenchyma level density D. FINDINGS: Bilateral CC and MLO views of the breasts were performed. Targeted ultrasound of the right breast in the region of palpable abnormality was performed. Right breast: There is a microlobulated mass in the upper outer right breast at posterior depth with coarse microcalcifications. Targeted ultrasound of this palpable abnormality was performed which revealed a hypoechoic mass with angular margins and coarse microcalcifications. No posterior characteristics are identified. There is internal vascularity identified. The mass is at the 9:30 position 6 cm from the nipple measuring 1.3 x 0.8 x 1.5 cm. Findings are highly suggestive of malignancy and ultrasound-guided core needle biopsy is recommended. Findings were discussed with the patient and Dr. Foster. An order will be obtained for core needle biopsy under ultrasound guidance. Left breast: No suspicious microcalcifications, masses or areas of architectural distortion are identified. IMPRESSION: 1.3 x 0.8 x 1.5 cm mass in the right breast at the 9:30 position, 6 cm from the nipple is highly suggestive of malignancy. Recommend ultrasound-guided core needle biopsy. BI-RADS CATEGORY: 5 HIGHLY SUGGESTIVE MALIGNANCY RECOMMENDED FOLLOW-UP: BIO BIOPSY RECOMMENDED PQRS compliance statement: Mammography is a sensitive method for finding small breast cancers, but it does not detect them all and is not a substitute for careful clinical examination. A negative mammogram does not negate a clinically suspicious finding and should not result in delay in biopsying a clinically suspicious abnormality. "Our facility is accredited by the [employer] Mammography Program."
== END | disposition home or self-care (01) ==
LOC: MAMMO 12:41
PROVIDERS: ATTEND Internal Medicine Hematology & Oncology
DX: N63.10 Unspecified lump in the right breast, unspecified quadrant (principal); Z85.01 Personal history of malignant neoplasm of esophagus
CPT/HCPCS: 76641; G0204; 77066

== ENCOUNTER 2017-12-30 09:46 | Observation (INO) | payer BC ==
[~2017-12-30 09:46] MED LIST changes: -ASPI-482 PO; +LIDOCAINE 1% PF 2 ML VIAL. ID; +MORPHINE SULFATE 2 MG/ML DISP.SYRIN. IV; +ONDANSETRON PF 4 MG/2 ML VIAL. IV; +fentaNYL PF VIAL 100 MCG/2 ML VIAL IV
[2017-12-30] MEDS: IV RINGERS,LACTATED 1000ML 1,000 ML IV ×2 (10:41)
[2017-12-30] MEDS: LIDOCAINE WITH 8.4% SOD BICARB 3 ML DISP.SYRIN. INJ ×2 (10:45)
[2017-12-30] MEDS: SCOPOLAMINE 1.5MG PATCH. TD ×2 (10:45)
[2017-12-30] MEDS ORDERED: PROPOFOL 20 ML IV ×2 (11:01)
[2017-12-30] MEDS ORDERED: MIDAZOLAM HCL/PF 2 MG/2 ML VIAL. ×2 (11:01)
[2017-12-30] MEDS ORDERED: fentaNYL PF VIAL 100 MCG/2 ML VIAL ×6 (11:01→12:57)
[2017-12-30] MEDS ORDERED: LIDOCAINE 2% PF Vial for OR 5 ML VIAL. ×2 (11:02)
[2017-12-30] MEDS ORDERED: DEXAMETHASONE SOD PHOS 20 MG/5 ML VIAL. ×2 (11:02)
[2017-12-30] MEDS ORDERED: ONDANSETRON PF 4 MG/2 ML VIAL. ×2 (11:02)
[2017-12-30] MEDS ORDERED: KETOROLAC 30 MG/ML INJ FOR OR. INJ ×2 (11:02)
[2017-12-30] MEDS: ISOSULFAN BLUE 50 MG/5 ML VIAL. SQ ×2 (12:13)
[2017-12-30] MEDS ORDERED: PHENYLEPHRINE in 0.9% NACL PF 1 MG/10 ML SYRINGE. IV (12:23)
[2017-12-30] MEDS ORDERED: ESMOLOL 100 MG/10 ML VIAL. IV ×4 (12:25→13:00)
[2017-12-30] MEDS ORDERED: HYDROcodone/APAP 5/325MG 1 TAB TABLET PO ×2 (13:45)
[2017-12-30] MEDS ORDERED: 0.9 % SODIUM CHLORIDE 10 ML DISP.SYRIN. IV ×2 (13:45)
[2017-12-30] MEDS ORDERED: MORPHINE SULFATE 2 MG/ML DISP.SYRIN. IV ×4 (13:45→14:00)
[2017-12-30] MEDS ORDERED: ONDANSETRON PF 4 MG/2 ML VIAL. IV ×2 (13:45)
[2017-12-30] MEDS: PROCHLORPERAZINE 10 MG/2 ML VIAL. IV ×2 (14:05)
[2017-12-30] MEDS: fentaNYL PF VIAL 100 MCG/2 ML VIAL IV ×2 (14:26)
[2017-12-30] MEDS: IV 1/2 NORMAL SALINE 1,000 ML IV ×2 (19:35)
[2017-12-30] MEDS ORDERED: MORPHINE SULFATE 4 MG/ML DISP.SYRIN. IV ×2 (19:45)
[2017-12-30] MEDS: MORPHINE SULFATE 4 MG/ML DISP.SYRIN. IV ×2 (20:01)
[2017-12-31] MEDS: IV 1/2 NORMAL SALINE 1,000 ML IV ×2 (02:09)
[2017-12-31] MEDS: HYDROcodone/APAP 5/325MG 1 TAB TABLET PO ×2 (05:43)
== END 2017-12-31 15:40 | disposition home or self-care (01) ==
LOC: SURG 09:46 → 4 SOUTHEST 13:39
DX: C50.411 Malignant neoplasm of upper-outer quadrant of right female breast (principal); C15.9 Malignant neoplasm of esophagus, unspecified; Z17.0 Estrogen receptor positive status [ER+]; Z72.0 Tobacco use
CPT/HCPCS: 19303; 38792; 88307; 88331; 88342; 96374; A9541; C1769; G0378; G0379; J0780; J1100; J1885; J1956; J2250; J2270; J2370; J2405; J2704; J3010; J3490; Q9968

== ENCOUNTER → 2018-02-22 | Outpatient (CLI) | payer BC ==
[2018-02-22] MEDS: IOHEXOL 240 MG/ML 50ML VIAL. PO (08:30)
[2018-02-22] MEDS: IOHEXOL 300 MG/ML 100ML VIAL. IV (09:59)
== END | disposition home or self-care (01) ==
LOC: NM 08:20
DX: C15.9 Malignant neoplasm of esophagus, unspecified (principal); Z85.01 Personal history of malignant neoplasm of esophagus; Z90.11 Acquired absence of right breast and nipple; Z85.3 Personal history of malignant neoplasm of breast
CPT/HCPCS: 71260; 74177; 78306; 96374; A9503; Q9966; Q9967

== ENCOUNTER → 2018-06-09 | Outpatient (CLI) | payer BC ==
[~2018-06-09] MED LIST changes: +CONTRAST GIVEN. MC; -LIDOCAINE 1% PF 2 ML VIAL. ID; -MORPHINE SULFATE 2 MG/ML DISP.SYRIN. IV; -ONDANSETRON PF 4 MG/2 ML VIAL. IV; -fentaNYL PF VIAL 100 MCG/2 ML VIAL IV
[2018-06-09] MEDS: IOHEXOL 240 MG/ML 50ML VIAL. PO (09:45)
[2018-06-09] MEDS: IOHEXOL 300 MG/ML 100ML VIAL. IV (10:50)
== END | disposition home or self-care (01) ==
LOC: CT 09:34
DX: E04.2 Nontoxic multinodular goiter (principal); K21.9 Gastro-esophageal reflux disease without esophagitis; E87.6 Hypokalemia; M47.894 Other spondylosis, thoracic region; Z85.01 Personal history of malignant neoplasm of esophagus; Z85.3 Personal history of malignant neoplasm of breast; Z86.2 Personal history of diseases of the blood and blood-forming organs and certain disorders involving the immune mechanism; Z87.891 Personal history of nicotine dependence
CPT/HCPCS: 71260; 74177; Q9966; Q9967

== ENCOUNTER → 2018-09-17 | Outpatient (CLI) | payer BC ==
[2017-12-31 12:52] VITALS: BP 100/62
[~2018-09-17] MED LIST changes: +ACET325T9 PO; +ANAS1TAB47 PO; +ASPI-482 PO; -CONTRAST GIVEN. MC; +HYDR15SO4 PO; +ONDA4TAB10 PO
--- NOTE | 2018-09-17 11:08 | RAD ---
DATE: 09/17/2018 EXAM: MAMMO TADEO DIAG LT HISTORY: Previous right breast cancer COMPARISON: 09/01/2017 This study was interpreted with the benefit of Computerized Aided Detection (CAD). Breast Density: HETERO The breast parenchyma is heterogenously dense, which could reduce sensitivity of mammography. Breast parenchyma level C. FINDINGS: 2-D and 3-D tomosynthesis imaging was performed in CC and MLO projections. No new or enlarging breast densities are seen. Benign type calcifications are present. No suspicious microcalcifications have developed. IMPRESSION: Stable mammograms without evidence of malignancy. BI-RADS CATEGORY: 2 BENIGN FINDING(S) RECOMMENDED FOLLOW-UP: 12M 12 MONTH FOLLOW-UP PQRS compliance statement: Patient information was entered into a reminder system with a target due date for the next mammogram. Mammography is a sensitive method for finding small breast cancers, but it does not detect them all and is not a substitute for careful clinical examination. A negative mammogram does not negate a clinically suspicious finding and should not result in delay in biopsying a clinically suspicious abnormality. "Our facility is accredited by the [employer] Mammography Program."
== END | disposition home or self-care (01) ==
LOC: MAMMO 12:14
PROVIDERS: ATTEND Internal Medicine Hematology & Oncology
DX: C15.9 Malignant neoplasm of esophagus, unspecified (principal); R92.1 Mammographic calcification found on diagnostic imaging of breast; Z85.3 Personal history of malignant neoplasm of breast
CPT/HCPCS: 77065; G0279; 77061

== ENCOUNTER → 2018-12-23 | Outpatient (CLI) | payer BC ==
[2017-12-31 12:52] VITALS: BP 100/62
[~2018-12-23] MED LIST changes: -HYDR15SO4 PO; +HYDR15SO6 PO; +IOHEXOL 240 MG/ML 50ML VIAL. PO ONE; +IOHEXOL 300 MG/ML 100ML VIAL. IV ONE
--- NOTE | 2018-12-23 13:11 | RAD ---
Examination: CT CHEST ABD PELVIS W/CONTRAST History: F/O ESOPHAGEAL CA INJ 75ML OMNI 300 PREV SENT Comparison/Correlation: 06/09/2018 CT chest abdomen pelvis with contrast Findings: Axial images of the chest, abdomen, and pelvis were obtained following IV and oral contrast. Sagittal and coronal reformatted images were provided. Right mastectomy noted. Multiple thyroid nodules are present and are unchanged compared to the previous exam. Contrast is noted within the mildly distended esophagus. Mild gallbladder wall thickening is present similar to previous exam. Centrilobular emphysema noted. No pulmonary nodule or mass. No infiltrate or effusion. No pneumothorax. No enlarged thoracic lymph nodes. Liver, spleen, pancreas, adrenal glands, and kidneys are normal. No extraluminal gas. No bowel obstruction. No inflammatory change about the cecum. Gallbladder fossa is unremarkable. Exaggerated kyphosis of the thoracic spine noted. Exaggerated lordosis of the lumbar spine evident. No enlarged abdominal or pelvic lymph nodes. No ascites or pelvic free fluid. Bladder is unremarkable. Bony structures are unremarkable for the patient's age Impression: Centrilobular emphysema. No mass lesions. No evidence of lymphadenopathy. PQRS Compliance Statement: One or more of the following individualized dose reduction techniques were utilized for this examination: 1. Automated exposure control 2. Adjustment of the mA and/or kV according to patient size 3. Use of iterative reconstruction technique Electronically signed by: Malcolm Bach MD (12/23/2018 1:09 PM) [id number]
== END | disposition home or self-care (01) ==
LOC: CT 09:42
PROVIDERS: ATTEND Internal Medicine Hematology & Oncology
DX: C15.9 Malignant neoplasm of esophagus, unspecified (principal); J43.2 Centrilobular emphysema; M40.294 Other kyphosis, thoracic region; M40.46 Postural lordosis, lumbar region; E04.1 Nontoxic single thyroid nodule; Z85.3 Personal history of malignant neoplasm of breast; Z90.11 Acquired absence of right breast and nipple
CPT/HCPCS: 71260; 74177; Q9966; Q9967

== ENCOUNTER → 2019-08-05 | Outpatient (CLI) | payer BC, OTHER ==
[2017-12-31 12:52] VITALS: BP 100/62
--- NOTE | 2019-08-05 17:06 | RAD ---
EXAM: Chest, abdomen and pelvis CT with intravenous contrast. HISTORY: Esophageal cancer. TECHNIQUE: Computed tomographic images of the chest, abdomen and pelvis were obtained following the administration of 75 cc 300 Omnipaque intravenous contrast. Multiplanar reformatting was performed. *One or more of the following individualized dose reduction techniques were utilized for this examination: 1. Automated exposure control. 2. Adjustment of the mA and/or kV according to patient size. 3. Use of iterative reconstruction technique. COMPARISON: 12/23/2018. FINDINGS: Chest: There is a dilated esophagus and distal esophageal mucosal thickening possibly due to known esophageal malignancy. The heart is normal in size. There is coronary artery atherosclerosis and calcification of the aortic valve. No pathologically enlarged mediastinal or hilar lymph node is seen. There is a heterogeneous enlarged thyroid containing multiple calcifications, nodules and cysts, likely due to a goiter. There is mild pulmonary emphysema with apical pleural parenchymal scarring. There are few tiny pulmonary nodules, the largest of which measure 3 mm within the inferior left upper lobe and superior right upper lobe. The right breast is surgically absent. There is increased thoracic kyphosis. No suspicious osseous lesion is seen. Abdomen and pelvis: No suspicious hepatic lesion is seen. There is a benign calcification along the anterior right hepatic lobe. The gallbladder is unremarkable. There is a gastrojejunostomy tube. There is a 3 mm fluid density lesion within the pancreatic head likely due to volume averaging of the downstream pancreatic duct. The spleen is upper normal in size. The adrenal glands are unremarkable. There are tiny foci of left kidney likely due to early excretion of contrast. There is no hydronephrosis. There is no evidence of bowel obstruction. There is no abnormal small or large bowel mucosal thickening. The bladder is distended. There is a suspected small calcified uterine fibroid. There is aortic atherosclerosis. No mesenteric or retroperitoneal lymphadenopathy is seen. There is no suspicious osseous lesion. There is lumbar hyperlordosis. IMPRESSION: 1. Patulous esophagus with distal esophageal mucosal thickening possibly due to reported known esophageal malignancy. This is slightly increased compared to the prior study. 2. Mild pulmonary emphysema and tiny nonspecific pulmonary nodules, the latter of which are slightly more conspicuous compared to the prior study. The largest nodules measure 3 mm. Given known primary malignancy, short-term follow-up is recommended 3. Thyroid goiter. This can be better assessed with a thyroid sonogram. 4. No acute thoracic, abdominal or pelvic finding. Electronically signed by: Donna Mojica MD (08/05/2019 5:03 PM) [place] [id number]
== END | disposition home or self-care (01) ==
LOC: CT 10:24
PROVIDERS: ATTEND Internal Medicine Hematology & Oncology
DX: C15.9 Malignant neoplasm of esophagus, unspecified (principal); J43.8 Other emphysema; E04.8 Other specified nontoxic goiter; R91.8 Other nonspecific abnormal finding of lung field; M40.294 Other kyphosis, thoracic region; I25.10 Atherosclerotic heart disease of native coronary artery without angina pectoris; I35.8 Other nonrheumatic aortic valve disorders; K22.8 Other specified diseases of esophagus; K76.89 Other specified diseases of liver; Z88.0 Allergy status to penicillin; Z88.2 Allergy status to sulfonamides
CPT/HCPCS: 71260; 74177; Q9966; Q9967

== ENCOUNTER → 2020-03-22 | Outpatient (CLI) | payer BC, OTHER ==
[2017-12-31 12:52] VITALS: BP 100/62
[~2020-03-22] MED LIST changes: -IOHEXOL 240 MG/ML 50ML VIAL. PO ONE; -IOHEXOL 300 MG/ML 100ML VIAL. IV ONE
[2020-03-22] MEDS: IOHEXOL 240 MG/ML 50ML VIAL. PO ONE (14:00)
[2020-03-22] MEDS: IOHEXOL 300 MG/ML 100ML VIAL. IV ONE (14:25)
--- NOTE | 2020-03-22 16:35 | RAD ---
Exam: CT chest, abdomen, and pelvis with intravenous contrast Indication: Esophageal cancer Comparison: CT chest abdomen and pelvis 08/05/2019 Technique: Helical CT imaging performed of the abdomen and pelvis after the intravenous administration of 75 mL Omnipaque 300 intravenous contrast. Sagittal and coronal reformats were obtained. One or more of the following individualized dose reduction techniques were utilized for this examination: 1. Automated exposure control 2. Adjustment of the mA and/or kV according to patient size 3. Use of iterative reconstruction technique. Findings: CHEST: Thyroid gland and thoracic inlet: Unchanged enlarged, multinodular thyroid gland with coarse calcifications on the right. No thoracic inlet lymphadenopathy Heart and great vessels: The heart is normal in size. No pericardial effusion. Thoracic aorta is normal in caliber. Mediastinum and yvan: No lymphadenopathy. Esophagus remains mild the patulous. There is decreased, small amount of fluid in the mid esophagus. Increased, marked circumferential masslike wall thickening at the gastroesophageal junction and gastric cardia. Lungs and pleura: Mild centrilobular emphysema and pleural parenchymal scarring in the apices. A 5 mm subpleural nodule in the posterior left lower lobe is new (image 38, axial series). Other tiny pulmonary nodules scattered throughout both lungs, the largest is a 3 mm pulmonary nodule in the right middle lobe, are unchanged. No pleural effusion. Chest wall: The right breast is surgically absent. No axillary lymphadenopathy. ABDOMEN AND PELVIS: Liver: The liver is normal in size and attenuation. No focal liver lesion. Gallbladder/Biliary Tree: Normal. Pancreas: Normal. Spleen: Normal. Adrenal Glands: Normal. Kidneys/Ureters/Bladder: Kidneys, ureters, and bladder are normal. Reproductive Organs: Uterus is anteverted. There is a calcified fibroid. No adnexal mass. Stomach, small bowel, and colon: There is increased marked wall thickening at the gastroesophageal junction and in the gastric cardia, as above. Gastrojejunostomy tube is in place without evidence of complication. There is small bowel-small bowel intussusception, likely transient. No small bowel obstruction. Colon is normal. Vasculature: Abdominal aorta is normal in caliber. No calcified aortoiliac atherosclerosis. Lymph Nodes: No lymphadenopathy. Peritoneum and retroperitoneum: No free fluid or free air. MUSCULOSKELETAL: Bones: No acute fracture or suspicious osseous abnormality. Thoracic kyphosis noted. Impression: 1. Worsened, circumferential masslike wall thickening at the gastroesophageal junction and gastric cardia, concerning for progression of malignancy. No definite metastatic disease. 2. New 5 mm subpleural pulmonary nodule in the posterior left lower lobe, nonspecific. Other tiny nonspecific bilateral pulmonary nodules are unchanged. Recommend attention on follow-up. 3. Small bowel-small bowel intussusception in the jejunum, likely transient. Recommend attention on follow-up to ensure resolution. 4. Unchanged multinodular goiter of the thyroid gland. Electronically signed by: Lynn Ray MD (03/22/2020 4:33 PM) [id number]
== END ==
LOC: CT 13:12
PROVIDERS: ATTEND Internal Medicine Hematology & Oncology
DX: C15.9 Malignant neoplasm of esophagus, unspecified (principal); J43.2 Centrilobular emphysema; R91.8 Other nonspecific abnormal finding of lung field; K56.1 Intussusception; M40.294 Other kyphosis, thoracic region; E04.2 Nontoxic multinodular goiter
CPT/HCPCS: 71260; 74177; Q9966; Q9967

== ENCOUNTER → 2020-07-13 | Outpatient (CLI) | payer OTHER ==
[2017-12-31 12:52] VITALS: BP 100/62
--- NOTE | 2020-07-13 18:56 | RAD ---
EXAM: PET W CT SKULL TO MIDTHIGH EXAM DATE: 07/13/2020 INDICATION: Restaging esophageal cancer. History of breast cancer also. RADIOPHARMACEUTICAL: 10.5 mCi of F-18 Fluorodeoxyglucose (FDG) I.V. via the left antecubital fossa. TECHNIQUE: Patient weight: 108 pounds. Following at least four-hour fasting, the patient's blood glucose was 132 mg/dl. Approximately 1 hour after administration of FDG, overlapping emission scanning was performed from the orbital meatal line through the pelvis. A low-dose CT was performed for attenuation correction purposes and anatomic localization. Fused images of PET and CT were reviewed. Any standardized uptake values (SUV) reported are maximum values within a volume region of interest, expressed in gm/ml. COMPARISON: Chest abdomen pelvis CT with IV contrast of 03/22/2020 FINDINGS: PET: Abnormal FDG uptake in the gastric cardia and gastroesophageal junction to max SUV of 15.4 is present. No other abnormal FDG uptake is identified. CT: Head and neck shows low density nodules in the bilateral thyroid gland, the right show coarse calcifications. No mass or adenopathy is apparent. Chest shows mild centrilobular emphysema and new bilateral pleural effusions, moderate on the left and small on the right with associated near complete lobar atelectasis of the left lower lobe. Coronary calcifications are present. No significant pericardial effusion. Masslike soft tissue thickening of the distal thoracic esophagus extending into the gastric cardia is redemonstrated. The right breast is surgically absent. Abdomen and pelvis again show a percutaneous gastrojejunostomy tube. The tip of the tube now terminates in the right upper quadrant abdomen, failing to cross midline as expected of the normal course of the duodenal C-loop. In addition, patient's left midabdomen jejunojejunal intussusception has been replaced by a midline abdominal enteroenteric intussusception, likely involving longer loops of more distal small bowel. No definite pneumatosis. No portal venous gas. No free air. No ascites. No obvious fluid collection. Large bowel shows multiple formed fecaliths that could reflect constipation. The appendix is normal. Bones show exaggerated thoracic kyphosis. No acute fracture or aggressive appearing osseous lesions. IMPRESSION: 1. Mass at the gastroesophageal junction and gastric cardia shows abnormal FDG uptake to max SUV of 15.4, consistent the patient's known esophageal cancer. No other abnormal FDG uptake is identified. 2. Interval development of bilateral left greater than right pleural effusions with lobar atelectasis of the left lower lobe. 3. Percutaneous gastrojejunostomy tube with persistent or recurrent enteroenteric intussusception. No findings of bowel obstruction. Electronically signed by: Eddie Santos MD (07/13/2020 6:54 PM) [id number]
== END | disposition home or self-care (01) ==
LOC: PETSC 10:00
PROVIDERS: ATTEND Internal Medicine Hematology & Oncology
DX: C15.9 Malignant neoplasm of esophagus, unspecified (principal); J43.2 Centrilobular emphysema; J98.11 Atelectasis; J90 Pleural effusion, not elsewhere classified; K22.9 Disease of esophagus, unspecified; R91.8 Other nonspecific abnormal finding of lung field
CPT/HCPCS: 78815; A9552